=== PATIENT | male | born 1950 | race Caucasian/White ===

== ENCOUNTER 2017-11-08 00:04 | Inpatient (IN) ==
[2017-11-08] MEDS ORDERED: PHENYLEPHRINE DRIP 40 MG/250 ML PREMIX IV ONE (00:14)
[2017-11-08] MEDS ORDERED: SODIUM CHLORIDE 0.9% 500 ML IV STA (00:19)
[2017-11-08] MEDS ORDERED: CLINDAMYCIN INJ 600 MG in PREMIX 1 EACH IV STA (00:19)
[2017-11-08] MEDS ORDERED: methylPREDNISolone SOD SUC 125 MG/2 ML VIAL IV STA (00:19)
[2017-11-08] MEDS ORDERED: PHENYLEPHRINE DRIP 40 MG/250 ML PREMIX IV PRN (00:23)
[2017-11-08] MEDS ORDERED: ALBUTEROL 2.5 MG/3 ML NEB RESP TX SCH (00:30)
[2017-11-08] MEDS ORDERED: VECURONIUM 10 MG VIAL IV ONE (00:43)
[2017-11-08] MEDS ORDERED: FUROSEMIDE 40 MG/4 ML VIAL IV STA ×2 (00:46→02:11)
[2017-11-08] MEDS ORDERED: VECURONIUM 10 MG VIAL IV STA (00:46)
[2017-11-08] MEDS ORDERED: FUROSEMIDE 40 MG/4 ML VIAL ONE (00:46)
[2017-11-08 00:56] LABS: Basophils % 0.4 % (0.0-0.8); Eosinophils # 0.3 10*3/uL (0.0-0.87); Eosinophils % 3.3 % (0.00-10.9); Hematocrit 31.4 VOL% (42.0-52.0); Hemoglobin 9.8 GM/DL (14.0-18.0); Immature Granulocytes % 4.4 %; Immature Granulocytes Absolute 0.36 #; Lymphocytes # 0.8 10*3/uL (1.4-4.0); Lymphocytes % 9.8 % (21.2-54.2); Mean Corpuscular HGB Conc 31.2 GM/DL (32-36); Mean Corpuscular Hemoglobin 27 PG (27-34); Mean Corpuscular Volume 87.5 FL (87-102); Mean Platelet Volume 9.1 FL (9.6-12.0); Monocytes # 0.5 10*3/uL (0.11-0.8); Monocytes % 6.5 % (1.7-12.7); Neutrophils # 6.2 10*3/uL (1.4-7.4); Neutrophils % 75.6 % (38.7-73.9); Platelet Count 374 T/CUMM (130-400); Red Blood Count 3.59 MC/CUMM (3.8-5.5); Red Cell Distribution Width 15.8 % (9.3-17.3); White Blood Count 8.2 T/CUMM (4-12)
[2017-11-08 01:09] LABS: INR 1.1; PT Patient Result 11.7 SECS
[2017-11-08 01:10] LABS: Alanine Aminotransferase 51 U/L (16-61); Albumin 2.2 G/DL (3.4-5.0); Alkaline Phosphatase 450 U/L (45-117); Aspartate Amino Transferase 71 U/L (0-37); Blood Urea Nitrogen 18 MG/DL (7-18); Calcium 8.8 MG/DL (8.5-10.1); Glucose 116 MG/DL (74-106); Osmolality,Calculated 281.4 MOS/KG (273-304); Potassium 4.3 MMOL/L (3.5-5.1); Sodium 140 MMOL/L (136-145); Total Protein 7.1 G/DL (6.4-8.3); Troponin I < 0.015 NG/ML (0.00-0.045)
[2017-11-08 01:14] LABS: ABG Base Excess 3.7 MMOL/L (-2.5-2.5); ABG HCO3 27.7 MMOL/L (20-26); ABG Oxygen Saturation 99.1 % (95-100); ABG PCO2 55.8 MM HG (35-48); ABG PH 7.346 (7.35-7.45); ABG TCO2 27.9 MMOL/L (23-27); Allen Test Positive; Pt O2 Delivery Device Ventilator
[2017-11-08 01:29] LABS: Lactic Acid 4.2 MMOL/L (0.4-2.0)
[2017-11-08 01:47] LABS: Apearance,Urine Slightly Hazy (Clear); Bacteria,Urine Occasional /HPF (Few); Bilirubin,Urine Negative (Negative); Blood, Urine Negative (Negative); Glucose,Urine (UA) Negative (Negative); Hyaline Casts,Urine 1 /LPF (0-3); Ketones,Urine Negative (Negative); Nitrite,Urine Positive (Negative); Protein,Urine Negative; RBC,Urine 3 /HPF (0-4); Squamous Epithelial Cell,Urine Occasional /HPF (0-10); Urine Color Yellow (Yellow); Urine Specific Gravity 1.011 (1.001-1.035); WBC,Urine 45 /HPF (0-6)
[2017-11-08 01:58] LABS: Barbiturates Screen,Urine Negative (Negative); Benzodiazepines Screen,Urine Negative (Negative); Cannabinoid Screen,Urine Negative (Negative); Opiate Screen,Urine Positive (Negative); Phencyclidine Screen,Urine Negative (Negative)
[2017-11-08] MEDS ORDERED: VANCOMYCIN 1,000 MG VIAL ONE (02:26)
[2017-11-08] MEDS ORDERED: VANCOMYCIN INJ 1,000 MG in SODIUM CHLORIDE 0.9% 250 ML IV SCH (02:30)
[2017-11-08] MEDS: PIPERACILLIN/TAZOBACTAM 3,375 MG in SODIUM CHLORIDE 0.9% 100 ML IV SCH ×3 (02:40→20:44)
[2017-11-08] MEDS ORDERED: VANCOMYCIN INJ 1,000 MG in SODIUM CHLORIDE 0.9% 250 ML IV STA (02:43)
[2017-11-08] MEDS ORDERED: ALBUTEROL 2.5 MG/3 ML NEB RESP TX PRN (03:11)
[2017-11-08] MEDS ORDERED: LACTULOSE 20 GM/30 ML UDCUP PO PRN (03:11)
[2017-11-08] MEDS ORDERED: ONDANSETRON 4 MG/2 ML VIAL IV PRN (03:11)
[2017-11-08] MEDS ORDERED: GLUCAGON 1 MG VIAL IM PRN (03:26)
[2017-11-08] MEDS ORDERED: DEXTROSE 50% 25 GM/50 ML VIAL IV PRN (03:26)
[2017-11-08 03:52] LABS: ABG Base Excess 5.5 MMOL/L (-2.5-2.5); ABG HCO3 29.5 MMOL/L (20-26); ABG Oxygen Saturation 99.3 % (95-100); ABG PCO2 47.6 MM HG (35-48); ABG TCO2 28.1 MMOL/L (23-27); Allen Test Positive; Pt O2 Delivery Device Ventilator
[2017-11-08] MEDS: SODIUM CHLORIDE 0.9% 1,000 ML IV SCH ×2 (04:20→14:43)
[2017-11-08] MEDS: PROPOFOL 1,000 MG/100 ML BOTTLE IV SCH ×6 (04:20→23:50)
[2017-11-08 04:30] LABS: INR 1.1; PT Patient Result 11.8 SECS
[2017-11-08] MEDS ORDERED: hydrALAZINE 20 MG/1 ML VIAL IV PRN (04:30)
[2017-11-08 04:34] LABS: Basophils % 0.3 % (0.0-0.8); Eosinophils # 0.1 10*3/uL (0.0-0.87); Eosinophils % 0.7 % (0.00-10.9); Hematocrit 31.7 VOL% (42.0-52.0); Hemoglobin 9.7 GM/DL (14.0-18.0); Immature Granulocytes % 1.3 %; Immature Granulocytes Absolute 0.13 #; Lymphocytes # 0.6 10*3/uL (1.4-4.0); Lymphocytes % 6.2 % (21.2-54.2); Mean Corpuscular HGB Conc 30.6 GM/DL (32-36); Mean Corpuscular Hemoglobin 27 PG (27-34); Mean Corpuscular Volume 88.3 FL (87-102); Mean Platelet Volume 8.9 FL (9.6-12.0); Monocytes # 0.2 10*3/uL (0.11-0.8); Monocytes % 1.7 % (1.7-12.7); Neutrophils # 8.7 10*3/uL (1.4-7.4); Neutrophils % 89.8 % (38.7-73.9); Platelet Count 378 T/CUMM (130-400); Red Blood Count 3.59 MC/CUMM (3.8-5.5); Red Cell Distribution Width 15.7 % (9.3-17.3); White Blood Count 9.6 T/CUMM (4-12)
[2017-11-08] MEDS: amLODIPine 5 MG TABLET PO SCH (04:50)
[2017-11-08] MEDS: hydrALAZINE 20 MG/1 ML VIAL IV PRN (04:50)
[2017-11-08 04:54] LABS: Albumin 2.4 G/DL (3.4-5.0); Bilirubin,Total 0.5 MG/DL (0.2-1.0); Osmolality,Calculated 282.5 MOS/KG (273-304); Potassium 3.5 MMOL/L (3.5-5.1); Total Protein 7.6 G/DL (6.4-8.3)
[2017-11-08] MEDS ORDERED: METOPROLOL SUCCINATE XL 50 MG TABLET PO SCH (05:00)
[2017-11-08] MEDS ORDERED: PIPERACILLIN/TAZOBACTAM 3,375 MG in SODIUM CHLORIDE 0.9% 100 ML IV SCH (05:30)
[2017-11-08] MEDS ORDERED: VANCOMYCIN INJ 1,250 MG in SODIUM CHLORIDE 0.9% 250 ML IV SCH (05:30)
[2017-11-08] MEDS ORDERED: niCARdipine INJ 25 MG in SODIUM CHLORIDE 0.9% 240 ML IV PRN (05:38)
[2017-11-08] MEDS ORDERED: niCARdipine 25 MG/10 ML VIAL IV ONE (05:44)
[2017-11-08] MEDS ORDERED: VANCOMYCIN INJ 1,000 MG in SODIUM CHLORIDE 0.9% 250 ML IV ONE (06:00)
[2017-11-08] MEDS: INSULIN LISPRO 100 UNIT/ML SUBCUT SCH ×4 (06:04→23:54)
[2017-11-08] MEDS: ALBUTEROL/IPRATROPIUM 3 ML NEB RESP TX SCH ×3 (07:00→19:04)
[2017-11-08] MEDS ORDERED: RIVAROXABAN 20 MG TABLET PO SCH (08:00)
[2017-11-08] MEDS: METOPROLOL TARTRATE 25 MG TABLET PER TUBE SCH ×2 (08:51→20:44)
[2017-11-08] MEDS: PANTOPRAZOLE 40 MG VIAL IV SCH (08:52)
[2017-11-08] MEDS: ENOXAPARIN 40 MG/0.4 ML SYRINGE SUBCUT SCH (08:52)
[2017-11-08] MEDS ORDERED: ENOXAPARIN 40 MG/0.4 ML SYRINGE SUBCUT SCH (09:00)
[2017-11-08] MEDS: methylPREDNISolone SOD SUC 40 MG/1 ML VIAL IV SCH ×2 (10:27→20:44)
[2017-11-08] MEDS: FUROSEMIDE 40 MG/4 ML VIAL IV SCH (10:30)
[2017-11-08] MEDS: VANCOMYCIN INJ 2,000 MG in SODIUM CHLORIDE 0.9% 500 ML IV SCH (17:55)
[2017-11-08] MEDS: FINASTERIDE 5 MG TABLET PO SCH (20:44)
[2017-11-09] MEDS: ALBUTEROL/IPRATROPIUM 3 ML NEB RESP TX SCH ×4 (00:06→19:21)
[2017-11-09] MEDS: methylPREDNISolone SOD SUC 40 MG/1 ML VIAL IV SCH ×3 (00:08→17:54)
[2017-11-09] MEDS: PIPERACILLIN/TAZOBACTAM 3,375 MG in SODIUM CHLORIDE 0.9% 100 ML IV SCH ×3 (01:49→18:44)
[2017-11-09] MEDS: PROPOFOL 1,000 MG/100 ML BOTTLE IV SCH ×10 (01:55→21:57)
[2017-11-09] MEDS: SODIUM CHLORIDE 0.9% 1,000 ML IV SCH ×2 (03:46→15:45)
[2017-11-09 04:21] LABS: Basophils % 0.1 % (0.0-0.8); Hemoglobin 8.7 GM/DL (14.0-18.0); Immature Granulocytes % 1.2 %; Immature Granulocytes Absolute 0.17 #; Lymphocytes % 6.7 % (21.2-54.2); Mean Corpuscular HGB Conc 31.1 GM/DL (32-36); Mean Corpuscular Hemoglobin 27 PG (27-34); Mean Corpuscular Volume 87.5 FL (87-102); Mean Platelet Volume 9.3 FL (9.6-12.0); Monocytes # 0.2 10*3/uL (0.11-0.8); Monocytes % 1.5 % (1.7-12.7); Neutrophils # 12.9 10*3/uL (1.4-7.4); Neutrophils % 90.5 % (38.7-73.9); Platelet Count 383 T/CUMM (130-400); Red Cell Distribution Width 15.8 % (9.3-17.3); White Blood Count 14.3 T/CUMM (4-12)
[2017-11-09 04:23] LABS: ABG Base Excess 3.5 MMOL/L (-2.5-2.5); ABG HCO3 27.6 MMOL/L (20-26); ABG Oxygen Saturation 98.1 % (95-100); ABG PCO2 39.2 MM HG (35-48); ABG PH 7.455 (7.35-7.45); ABG TCO2 25.4 MMOL/L (23-27); Allen Test Positive; Pt O2 Delivery Device Ventilator
[2017-11-09 04:57] LABS: Osmolality,Calculated 292.1 MOS/KG (273-304); Potassium 3.3 MMOL/L (3.5-5.1); Prealbumin 13.1 MG/DL (20-40)
[2017-11-09] MEDS: INSULIN LISPRO 100 UNIT/ML SUBCUT SCH ×3 (05:51→17:58)
[2017-11-09] MEDS: VANCOMYCIN INJ 2,000 MG in SODIUM CHLORIDE 0.9% 500 ML IV SCH ×2 (05:53→18:35)
[2017-11-09 07:24] LABS: ABG Base Excess 4.2 MMOL/L (-2.5-2.5); ABG HCO3 28.1 MMOL/L (20-26); ABG PCO2 40.6 MM HG (35-48); ABG PH 7.453 (7.35-7.45); ABG PO2 75.7 MM HG (80-95); Allen Test Positive; Pt O2 Delivery Device Ventilator
[2017-11-09] MEDS: FUROSEMIDE 40 MG/4 ML VIAL IV SCH (09:30)
[2017-11-09] MEDS: amLODIPine 5 MG TABLET PO SCH (09:33)
[2017-11-09] MEDS: METOPROLOL TARTRATE 25 MG TABLET PER TUBE SCH ×2 (09:33→20:36)
[2017-11-09] MEDS: ENOXAPARIN 40 MG/0.4 ML SYRINGE SUBCUT SCH (09:33)
[2017-11-09] MEDS: PANTOPRAZOLE 40 MG VIAL IV SCH (09:33)
[2017-11-09] MEDS: MORPHINE 4 MG/1 ML VIAL IV PRN (15:09)
[2017-11-09] MEDS: MIDAZOLAM 100 MG in SODIUM CHLORIDE 0.9% 80 ML IV SCH (16:59)
[2017-11-09] MEDS: FINASTERIDE 5 MG TABLET PO SCH (20:36)
[2017-11-09] MEDS: hydrALAZINE 20 MG/1 ML VIAL IV PRN (22:13)
[2017-11-10] MEDS: INSULIN LISPRO 100 UNIT/ML SUBCUT SCH ×5 (00:11→23:38)
[2017-11-10] MEDS: ALBUTEROL/IPRATROPIUM 3 ML NEB RESP TX SCH ×4 (00:52→18:58)
[2017-11-10] MEDS: methylPREDNISolone SOD SUC 40 MG/1 ML VIAL IV SCH ×3 (01:18→17:08)
[2017-11-10] MEDS: PROPOFOL 1,000 MG/100 ML BOTTLE IV SCH ×6 (01:28→21:19)
[2017-11-10] MEDS: SODIUM CHLORIDE 0.9% 1,000 ML IV SCH ×3 (01:43→21:50)
[2017-11-10] MEDS: PIPERACILLIN/TAZOBACTAM 3,375 MG in SODIUM CHLORIDE 0.9% 100 ML IV SCH ×3 (02:24→21:14)
[2017-11-10 03:05] LABS: Allen Test Positive; Pt O2 Delivery Device Ventilator
[2017-11-10 03:06] LABS: ABG Base Excess 4.3 MMOL/L (-2.5-2.5); ABG Oxygen Saturation 96.9 % (95-100); ABG PCO2 38.3 MM HG (35-48); ABG PH 7.482 (7.35-7.45); ABG PO2 95.2 MM HG (80-95); ABG TCO2 29.2 MMOL/L (23-27)
[2017-11-10] MEDS: hydrALAZINE 20 MG/1 ML VIAL IV PRN ×2 (04:44→13:10)
[2017-11-10] MEDS: METOPROLOL TARTRATE 25 MG TABLET PER TUBE SCH ×2 (08:45→21:14)
[2017-11-10] MEDS: MULTIVITAMIN LIQUID (CENTRUM) 60 ML BOTTLE PER TUBE SCH (08:45)
[2017-11-10] MEDS: ENOXAPARIN 40 MG/0.4 ML SYRINGE SUBCUT SCH (08:45)
[2017-11-10] MEDS: FUROSEMIDE 40 MG/4 ML VIAL IV SCH (08:45)
[2017-11-10] MEDS: MORPHINE 4 MG/1 ML VIAL IV PRN ×2 (08:50→13:05)
[2017-11-10] MEDS: amLODIPine 5 MG TABLET PO SCH (08:50)
[2017-11-10] MEDS: PANTOPRAZOLE 40 MG VIAL IV SCH (08:55)
[2017-11-10] MEDS: MIDAZOLAM 100 MG in SODIUM CHLORIDE 0.9% 80 ML IV SCH ×2 (13:15→16:00)
[2017-11-10] MEDS: FINASTERIDE 5 MG TABLET PO SCH (21:14)
[2017-11-11] MEDS: hydrALAZINE 20 MG/1 ML VIAL IV PRN ×3 (00:35→23:45)
[2017-11-11] MEDS: methylPREDNISolone SOD SUC 40 MG/1 ML VIAL IV SCH ×3 (00:36→17:45)
[2017-11-11] MEDS: MORPHINE 4 MG/1 ML VIAL IV PRN ×4 (00:36→18:37)
[2017-11-11] MEDS: ALBUTEROL/IPRATROPIUM 3 ML NEB RESP TX SCH ×4 (00:42→19:50)
[2017-11-11] MEDS: PROPOFOL 1,000 MG/100 ML BOTTLE IV SCH ×7 (02:00→22:15)
[2017-11-11 03:31] LABS: ABG Base Excess 3.4 MMOL/L (-2.5-2.5); ABG HCO3 27.4 MMOL/L (20-26); ABG Oxygen Saturation 96.5 % (95-100); ABG PCO2 43.2 MM HG (35-48); ABG PH 7.422 (7.35-7.45); ABG PO2 86.2 MM HG (80-95); ABG TCO2 25.9 MMOL/L (23-27)
[2017-11-11 04:14] LABS: Basophils % 0.1 % (0.0-0.8); Hematocrit 29.6 VOL% (42.0-52.0); Hemoglobin 8.8 GM/DL (14.0-18.0); Immature Granulocytes % 4.1 %; Immature Granulocytes Absolute 0.59 #; Lymphocytes % 7.2 % (21.2-54.2); Mean Corpuscular HGB Conc 29.7 GM/DL (32-36); Mean Corpuscular Hemoglobin 27 PG (27-34); Mean Platelet Volume 9.4 FL (9.6-12.0); Monocytes # 0.5 10*3/uL (0.11-0.8); Monocytes % 3.6 % (1.7-12.7); NRBC # 0.03 10*3/uL; Neutrophils # 12.2 10*3/uL (1.4-7.4); Platelet Count 382 T/CUMM (130-400); Red Blood Count 3.29 MC/CUMM (3.8-5.5); Red Cell Distribution Width 16.8 % (9.3-17.3); White Blood Count 14.3 T/CUMM (4-12)
[2017-11-11 04:56] LABS: Calcium 8.4 MG/DL (8.5-10.1); Potassium 4.1 MMOL/L (3.5-5.1)
[2017-11-11] MEDS: PIPERACILLIN/TAZOBACTAM 3,375 MG in SODIUM CHLORIDE 0.9% 100 ML IV SCH ×4 (04:56→21:44)
[2017-11-11] MEDS: INSULIN LISPRO 100 UNIT/ML SUBCUT SCH ×3 (06:27→18:21)
[2017-11-11] MEDS: SODIUM CHLORIDE 0.9% 1,000 ML IV SCH ×2 (07:51→17:54)
[2017-11-11 09:25] LABS: Lymphocytes 10 % (20-55); Platelet Estimate Normal; Polychromasia Slight; Segmented Neutrophils 87 % (50-85); Total Cells Counted 100
[2017-11-11] MEDS: FUROSEMIDE 40 MG/4 ML VIAL IV SCH (09:32)
[2017-11-11] MEDS: ENOXAPARIN 40 MG/0.4 ML SYRINGE SUBCUT SCH (09:32)
[2017-11-11] MEDS: PANTOPRAZOLE 40 MG VIAL IV SCH (09:32)
[2017-11-11] MEDS: MULTIVITAMIN LIQUID (CENTRUM) 60 ML BOTTLE PER TUBE SCH (09:33)
[2017-11-11] MEDS: amLODIPine 5 MG TABLET PO SCH (09:33)
[2017-11-11] MEDS: METOPROLOL TARTRATE 25 MG TABLET PER TUBE SCH ×2 (09:33→21:37)
[2017-11-11] MEDS ORDERED: VANCOMYCIN INJ 2,000 MG in SODIUM CHLORIDE 0.9% 500 ML IV SCH (10:00)
[2017-11-11] MEDS: MIDAZOLAM 100 MG in SODIUM CHLORIDE 0.9% 80 ML IV SCH ×2 (14:50→16:00)
[2017-11-11] MEDS: FINASTERIDE 5 MG TABLET PO SCH (21:37)
[2017-11-12] MEDS: INSULIN LISPRO 100 UNIT/ML SUBCUT SCH ×3 (00:08→12:14)
[2017-11-12] MEDS: methylPREDNISolone SOD SUC 40 MG/1 ML VIAL IV SCH ×2 (00:08→08:45)
[2017-11-12] MEDS: ALBUTEROL/IPRATROPIUM 3 ML NEB RESP TX SCH ×3 (00:54→12:16)
[2017-11-12] MEDS: PROPOFOL 1,000 MG/100 ML BOTTLE IV SCH ×3 (01:28→08:14)
[2017-11-12 03:46] LABS: ABG Base Excess 2.1 MMOL/L (-2.5-2.5); ABG HCO3 26.3 MMOL/L (20-26); ABG Oxygen Saturation 97.6 % (95-100); ABG PCO2 39.2 MM HG (35-48); ABG PH 7.435 (7.35-7.45); ABG PO2 93.3 MM HG (80-95); ABG TCO2 24.4 MMOL/L (23-27)
[2017-11-12] MEDS: SODIUM CHLORIDE 0.9% 1,000 ML IV SCH ×2 (03:54→14:07)
[2017-11-12 04:26] LABS: Basophils % 0.2 % (0.0-0.8); Hematocrit 28.8 VOL% (42.0-52.0); Lymphocytes # 0.9 10*3/uL (1.4-4.0); Lymphocytes % 7.6 % (21.2-54.2); Mean Corpuscular HGB Conc 31.3 GM/DL (32-36); Mean Corpuscular Hemoglobin 29 PG (27-34); Mean Corpuscular Volume 91.4 FL (87-102); Mean Platelet Volume 9.6 FL (9.6-12.0); Monocytes # 0.5 10*3/uL (0.11-0.8); Monocytes % 4.1 % (1.7-12.7); NRBC # 0.03 10*3/uL; Neutrophils # 9.9 10*3/uL (1.4-7.4); Neutrophils % 83.1 % (38.7-73.9); Platelet Count 362 T/CUMM (130-400); Red Blood Count 3.15 MC/CUMM (3.8-5.5); Red Cell Distribution Width 17.1 % (9.3-17.3); White Blood Count 11.9 T/CUMM (4-12)
[2017-11-12 04:44] LABS: Calcium 7.4 MG/DL (8.5-10.1); Osmolality,Calculated 286.5 MOS/KG (273-304)
[2017-11-12 05:07] LABS: Band Neutrophils 3 % (0-10); Hypochromasia 1+; Lymphocytes 6 % (20-55); Platelet Estimate Adequate; Segmented Neutrophils 88 % (50-85); Total Cells Counted 100
[2017-11-12] MEDS: MORPHINE 4 MG/1 ML VIAL IV PRN ×2 (05:42→12:16)
[2017-11-12] MEDS: PIPERACILLIN/TAZOBACTAM 3,375 MG in SODIUM CHLORIDE 0.9% 100 ML IV SCH (07:13)
[2017-11-12] MEDS: ENOXAPARIN 40 MG/0.4 ML SYRINGE SUBCUT SCH (08:43)
[2017-11-12] MEDS: amLODIPine 5 MG TABLET PO SCH (08:43)
[2017-11-12] MEDS: METOPROLOL TARTRATE 25 MG TABLET PER TUBE SCH (08:43)
[2017-11-12] MEDS: PANTOPRAZOLE 40 MG VIAL IV SCH (08:44)
[2017-11-12] MEDS: MULTIVITAMIN LIQUID (CENTRUM) 60 ML BOTTLE PER TUBE SCH (08:45)
[2017-11-12] MEDS: FUROSEMIDE 40 MG/4 ML VIAL IV SCH (08:45)
[2017-11-12 09:36] LABS: ABG Base Excess 1.5 MMOL/L (-2.5-2.5); ABG HCO3 25.7 MMOL/L (20-26); ABG Oxygen Saturation 94.1 % (95-100); ABG PCO2 44.5 MM HG (35-48); ABG PH 7.387 (7.35-7.45); ABG PO2 74.6 MM HG (80-95); ABG TCO2 24.5 MMOL/L (23-27); Allen Test Positive
[2017-11-12] MEDS ORDERED: cloNIDine 0.3 MG/24 HR PATCH TRANSDERM SCH (10:00)
[2017-11-12 13:57] VITALS: BP 111/85
== END 2017-11-12 15:28 | DRG 208 ==
LOC: N.ED 00:04 → SUATTDRO 03:11 → N.ICU 03:11
PROVIDERS: ADMIT Internal Medicine Geriatric Medicine; ATTEND Internal Medicine

== ENCOUNTER 2018-02-16 18:40 | Inpatient (IN) ==
[2018-02-16] MEDS ORDERED: SODIUM CHLORIDE 0.9% 500 ML IV STA (19:05)
[2018-02-16] MEDS ORDERED: PHENYLEPHRINE DRIP 40 MG/250 ML PREMIX IV PRN ×2 (19:05→23:39)
[2018-02-16] MEDS ORDERED: CEFEPIME 2,000 MG in SODIUM CHLORIDE 0.9% 100 ML IV STA (19:05)
[2018-02-16] MEDS ORDERED: CEFEPIME 2,000 MG VIAL ONE (19:06)
[2018-02-16] MEDS ORDERED: PHENYLEPHRINE DRIP 40 MG/250 ML PREMIX IV ONE (19:06)
[2018-02-16 19:07] LABS: Basophils % 0.3 % (0.0-0.8); Eosinophils # 0.2 10*3/uL (0.0-0.87); Eosinophils % 1.4 % (0.00-10.9); Hematocrit 37.6 VOL% (42.0-52.0); Hemoglobin 11.5 GM/DL (14.0-18.0); Immature Granulocytes Absolute 0.13 #; Lymphocytes # 0.9 10*3/uL (1.4-4.0); Mean Corpuscular HGB Conc 30.6 GM/DL (32-36); Mean Corpuscular Hemoglobin 27 PG (27-34); Mean Corpuscular Volume 87.2 FL (87-102); Mean Platelet Volume 8.9 FL (9.6-12.0); Monocytes # 0.6 10*3/uL (0.11-0.8); Monocytes % 4.6 % (1.7-12.7); Neutrophils # 10.7 10*3/uL (1.4-7.4); Neutrophils % 85.7 % (38.7-73.9); Platelet Count 325 T/CUMM (130-400); Red Blood Count 4.31 MC/CUMM (3.8-5.5); Red Cell Distribution Width 15.2 % (9.3-17.3); White Blood Count 12.5 T/CUMM (4-12)
[2018-02-16 19:25] LABS: Lactic Acid 1.7 MMOL/L (0.4-2.0)
[2018-02-16 19:27] LABS: Alanine Aminotransferase 55 U/L (16-61); Albumin 2.9 G/DL (3.4-5.0); Alkaline Phosphatase 346 U/L (45-117); Aspartate Amino Transferase 72 U/L (0-37); Blood Urea Nitrogen 28 MG/DL (7-18); Calcium 8.7 MG/DL (8.5-10.1); Glucose 156 MG/DL (74-106); Osmolality,Calculated 268.8 MOS/KG (273-304); Potassium 4.5 MMOL/L (3.5-5.1); Sodium 130 MMOL/L (136-145); Total Protein 7.3 G/DL (6.4-8.3); Troponin I < 0.015 NG/ML (0.00-0.045)
[2018-02-16 19:48] LABS: ABG Base Excess -1.3 MMOL/L (-2.5-2.5); ABG HCO3 23.3 MMOL/L (20-26); ABG Oxygen Saturation 98.6 % (95-100); ABG PCO2 68.8 MM HG (35-48); ABG PH 7.227 (7.35-7.45); ABG TCO2 25.6 MMOL/L (23-27)
[2018-02-16] MEDS ORDERED: ALBUTEROL 2.5 MG/3 ML NEB RESP TX PRN (20:38)
[2018-02-16] MEDS ORDERED: ACETAMINOPHEN 325 MG TABLET PO PRN (20:38)
[2018-02-16] MEDS ORDERED: PHENYLEPHRINE DRIP 40 MG/250 ML PREMIX IV SCH (21:00)
[2018-02-16] MEDS: SODIUM CHLORIDE 0.9% 1,000 ML IV SCH (22:19)
[2018-02-16] MEDS: FAMOTIDINE 20 MG/2 ML VIAL IV SCH (23:00)
[2018-02-17] MEDS: ALBUTEROL/IPRATROPIUM 3 ML NEB RESP TX SCH ×4 (02:10→19:41)
[2018-02-17 03:35] LABS: Allen Test Positive; Pt O2 Delivery Device Ventilator
[2018-02-17 03:36] LABS: ABG Base Excess 1.7 MMOL/L (-2.5-2.5); ABG HCO3 25.8 MMOL/L (20-26); ABG Oxygen Saturation 95.5 % (95-100); ABG PCO2 50.7 MM HG (35-48); ABG PH 7.351 (7.35-7.45); ABG PO2 77.7 MM HG (80-95); ABG TCO2 25.3 MMOL/L (23-27)
[2018-02-17 03:55] LABS: Basophils # 0.1 10*3/uL (0.0-0.2); Basophils % 0.4 % (0.0-0.8); Eosinophils # 0.1 10*3/uL (0.0-0.87); Eosinophils % 0.6 % (0.00-10.9); Hematocrit 36.3 VOL% (42.0-52.0); Hemoglobin 10.8 GM/DL (14.0-18.0); Immature Granulocytes % 0.3 %; Immature Granulocytes Absolute 0.04 #; Lymphocytes # 1.3 10*3/uL (1.4-4.0); Mean Corpuscular HGB Conc 29.8 GM/DL (32-36); Mean Corpuscular Hemoglobin 26 PG (27-34); Mean Corpuscular Volume 87.1 FL (87-102); Mean Platelet Volume 9.2 FL (9.6-12.0); Monocytes # 1.3 10*3/uL (0.11-0.8); Monocytes % 10.4 % (1.7-12.7); Neutrophils # 9.8 10*3/uL (1.4-7.4); Neutrophils % 78.3 % (38.7-73.9); Platelet Count 315 T/CUMM (130-400); Red Blood Count 4.17 MC/CUMM (3.8-5.5); White Blood Count 12.5 T/CUMM (4-12)
[2018-02-17 04:12] LABS: Albumin 2.9 G/DL (3.4-5.0); Bilirubin,Total 0.4 MG/DL (0.2-1.0); Calcium 8.8 MG/DL (8.5-10.1)
[2018-02-17 04:13] LABS: Osmolality,Calculated 269.5 MOS/KG (273-304); Potassium 4.4 MMOL/L (3.5-5.1)
[2018-02-17] MEDS: SODIUM CHLORIDE 0.9% 1,000 ML IV SCH ×3 (05:36→22:46)
[2018-02-17] MEDS: PROPOFOL 1,000 MG/100 ML BOTTLE IV SCH ×7 (05:36→22:46)
[2018-02-17] MEDS ORDERED: LIDOCAINE 2% 20 ML VIAL RESP TX ONE (08:24)
[2018-02-17] MEDS ORDERED: LIDOCAINE 1% 20 ML VIAL MISC INJ ONE (08:24)
[2018-02-17] MEDS: ENOXAPARIN 40 MG/0.4 ML SYRINGE SUBCUT SCH (09:48)
[2018-02-17] MEDS: PIPERACILLIN/TAZOBACTAM 3,375 MG in SODIUM CHLORIDE 0.9% 100 ML IV SCH ×2 (09:48→17:11)
[2018-02-17] MEDS: DOXYCYCLINE HYCLATE 100 MG CAPSULE PO SCH ×2 (09:48→20:36)
[2018-02-17] MEDS: FAMOTIDINE 20 MG/2 ML VIAL IV SCH ×2 (09:49→20:35)
[2018-02-18] MEDS: ALBUTEROL/IPRATROPIUM 3 ML NEB RESP TX SCH ×5 (00:48→19:15)
[2018-02-18] MEDS: PIPERACILLIN/TAZOBACTAM 3,375 MG in SODIUM CHLORIDE 0.9% 100 ML IV SCH ×3 (01:15→16:05)
[2018-02-18] MEDS: PROPOFOL 1,000 MG/100 ML BOTTLE IV SCH ×12 (01:15→23:01)
[2018-02-18] MEDS: MORPHINE 4 MG/1 ML VIAL IV PRN ×3 (03:15→22:07)
[2018-02-18 03:43] LABS: ABG Base Excess 1.9 MMOL/L (-2.5-2.5); ABG HCO3 26.1 MMOL/L (20-26); ABG Oxygen Saturation 95.9 % (95-100); ABG PCO2 43.2 MM HG (35-48); ABG PH 7.404 (7.35-7.45); ABG PO2 78.5 MM HG (80-95); ABG TCO2 24.5 MMOL/L (23-27); Allen Test Positive; Pt O2 Delivery Device Ventilator
[2018-02-18 04:54] LABS: Calcium 8.5 MG/DL (8.5-10.1); Potassium 3.1 MMOL/L (3.5-5.1)
[2018-02-18] MEDS: DOXYCYCLINE HYCLATE 100 MG CAPSULE PO SCH ×2 (08:25→21:31)
[2018-02-18] MEDS: POTASSIUM CHLORIDE 20 MEQ/15 ML UDCUP PER TUBE SCH ×5 (08:25→23:58)
[2018-02-18] MEDS: ENOXAPARIN 40 MG/0.4 ML SYRINGE SUBCUT SCH (08:25)
[2018-02-18] MEDS: FAMOTIDINE 20 MG/2 ML VIAL IV SCH ×2 (08:25→21:31)
[2018-02-18] MEDS: SODIUM CHLORIDE 0.9% 1,000 ML IV SCH ×2 (10:11→17:47)
[2018-02-18] MEDS: VANCOMYCIN INJ 2,000 MG in SODIUM CHLORIDE 0.9% 500 ML IV SCH ×2 (10:20→21:59)
[2018-02-18] MEDS: methylPREDNISolone SOD SUC 40 MG/1 ML VIAL IV SCH ×2 (10:20→17:43)
[2018-02-18] MEDS ORDERED: DEXTROSE 50% 25 GM/50 ML SYRINGE IV PRN (11:11)
[2018-02-18] MEDS ORDERED: INFLUENZA VIRUS VACCINE 0.5 ML SYRINGE IM ONE (16:30)
[2018-02-18] MEDS ORDERED: amLODIPine 10 MG TABLET PO ONE (17:05)
[2018-02-18 20:02] LABS: Apearance,Urine CLEAR (Clear); Bilirubin,Urine Negative (Negative); Blood, Urine Negative (Negative); Glucose,Urine (UA) Negative (Negative); Ketones,Urine Negative (Negative); Nitrite,Urine Negative (Negative); Protein,Urine Negative; RBC,Urine <1 /HPF (0-4); Urine Color Yellow (Yellow); Urine Specific Gravity 1.013 (1.001-1.035); Urine Urobilinogen < 2.0 EU/DL (0.2-1.0); WBC,Urine 4 /HPF (0-6)
[2018-02-18] MEDS: METOPROLOL SUCCINATE XL 50 MG TABLET PO SCH (23:09)
[2018-02-19] MEDS: PIPERACILLIN/TAZOBACTAM 3,375 MG in SODIUM CHLORIDE 0.9% 100 ML IV SCH ×2 (00:25→08:43)
[2018-02-19] MEDS: methylPREDNISolone SOD SUC 40 MG/1 ML VIAL IV SCH ×3 (00:30→18:10)
[2018-02-19] MEDS: PROPOFOL 1,000 MG/100 ML BOTTLE IV SCH ×16 (00:37→23:55)
[2018-02-19] MEDS ORDERED: cloNIDine 0.1 MG TABLET PO PRN (01:44)
[2018-02-19] MEDS: SODIUM CHLORIDE 0.9% 1,000 ML IV SCH ×4 (02:06→18:25)
[2018-02-19] MEDS: ALBUTEROL/IPRATROPIUM 3 ML NEB RESP TX SCH ×4 (02:09→20:41)
[2018-02-19 03:21] LABS: Basophils % 0.1 % (0.0-0.8); Hemoglobin 11.2 GM/DL (14.0-18.0); Immature Granulocytes Absolute 0.07 #; Lymphocytes # 1.3 10*3/uL (1.4-4.0); Lymphocytes % 17.2 % (21.2-54.2); Mean Corpuscular HGB Conc 30.3 GM/DL (32-36); Mean Corpuscular Hemoglobin 26 PG (27-34); Mean Corpuscular Volume 85.6 FL (87-102); Mean Platelet Volume 9.4 FL (9.6-12.0); Monocytes # 0.4 10*3/uL (0.11-0.8); Monocytes % 5.7 % (1.7-12.7); Neutrophils # 5.6 10*3/uL (1.4-7.4); Platelet Count 257 T/CUMM (130-400); Red Blood Count 4.32 MC/CUMM (3.8-5.5); White Blood Count 7.3 T/CUMM (4-12)
[2018-02-19 03:41] LABS: Calcium 9.1 MG/DL (8.5-10.1); Osmolality,Calculated 277.8 MOS/KG (273-304); Potassium 4.4 MMOL/L (3.5-5.1)
[2018-02-19 04:11] LABS: Prealbumin 18.4 MG/DL (20-40)
[2018-02-19 04:47] LABS: ABG Base Excess -1.5 MMOL/L (-2.5-2.5); ABG HCO3 23.9 MMOL/L (20-26); ABG Oxygen Saturation 96.7 % (95-100); ABG PCO2 42.8 MM HG (35-48); ABG PH 7.364 (7.35-7.45); ABG PO2 90.3 MM HG (80-95); ABG TCO2 25.2 MMOL/L (23-27)
[2018-02-19] MEDS: VENLAFAXINE 75 MG TABLET PER TUBE SCH (08:43)
[2018-02-19] MEDS: FAMOTIDINE 20 MG/2 ML VIAL IV SCH ×2 (08:43→20:27)
[2018-02-19] MEDS: DOXYCYCLINE HYCLATE 100 MG CAPSULE PO SCH ×2 (08:43→20:27)
[2018-02-19] MEDS: ENOXAPARIN 40 MG/0.4 ML SYRINGE SUBCUT SCH (08:43)
[2018-02-19] MEDS: METOPROLOL SUCCINATE XL 50 MG TABLET PO SCH (08:43)
[2018-02-19] MEDS: amLODIPine 10 MG TABLET PO SCH (08:43)
[2018-02-19] MEDS: VANCOMYCIN INJ 2,000 MG in SODIUM CHLORIDE 0.9% 500 ML IV SCH ×2 (10:20→20:43)
[2018-02-19] MEDS: LISINOPRIL 10 MG TABLET PO SCH (12:02)
[2018-02-19] MEDS: MEROPENEM 1,000 MG in SODIUM CHLORIDE 0.9% 100 ML IV SCH ×2 (16:39→23:38)
[2018-02-19] MEDS: METOPROLOL TARTRATE 50 MG TABLET PO SCH (20:28)
[2018-02-19] MEDS: MORPHINE 4 MG/1 ML VIAL IV PRN (22:02)
[2018-02-20] MEDS: PROPOFOL 1,000 MG/100 ML BOTTLE IV SCH ×5 (01:22→09:20)
[2018-02-20] MEDS: methylPREDNISolone SOD SUC 40 MG/1 ML VIAL IV SCH ×3 (01:49→17:30)
[2018-02-20 03:40] LABS: Basophils % 0.1 % (0.0-0.8); Hematocrit 31.2 VOL% (42.0-52.0); Hemoglobin 9.6 GM/DL (14.0-18.0); Immature Granulocytes % 0.8 %; Immature Granulocytes Absolute 0.08 #; Lymphocytes # 0.7 10*3/uL (1.4-4.0); Lymphocytes % 7.3 % (21.2-54.2); Mean Corpuscular HGB Conc 30.8 GM/DL (32-36); Mean Corpuscular Hemoglobin 26 PG (27-34); Mean Platelet Volume 9.5 FL (9.6-12.0); Monocytes # 0.4 10*3/uL (0.11-0.8); Monocytes % 4.2 % (1.7-12.7); Neutrophils # 8.9 10*3/uL (1.4-7.4); Neutrophils % 87.6 % (38.7-73.9); Platelet Count 259 T/CUMM (130-400); Red Blood Count 3.67 MC/CUMM (3.8-5.5); Red Cell Distribution Width 15.4 % (9.3-17.3); White Blood Count 10.2 T/CUMM (4-12)
[2018-02-20 04:07] LABS: Calcium 8.2 MG/DL (8.5-10.1); Osmolality,Calculated 281.7 MOS/KG (273-304); Potassium 3.9 MMOL/L (3.5-5.1)
[2018-02-20] MEDS: ALBUTEROL/IPRATROPIUM 3 ML NEB RESP TX SCH ×4 (04:30→20:27)
[2018-02-20] MEDS ORDERED: POTASSIUM CHLORIDE 20 MEQ/15 ML UDCUP PER TUBE PRN (05:10)
[2018-02-20 05:25] LABS: ABG HCO3 22.7 MMOL/L (20-26); ABG Oxygen Saturation 97.4 % (95-100); ABG PCO2 40.7 MM HG (35-48); ABG PH 7.365 (7.35-7.45); ABG PO2 93.7 MM HG (80-95)
[2018-02-20] MEDS ORDERED: hydrALAZINE 20 MG/1 ML VIAL IV ONE (06:30)
[2018-02-20] MEDS: MEROPENEM 1,000 MG in SODIUM CHLORIDE 0.9% 100 ML IV SCH ×2 (07:39→15:45)
[2018-02-20] MEDS: SODIUM CHLORIDE 0.9% 1,000 ML IV SCH (07:39)
[2018-02-20] MEDS ORDERED: FUROSEMIDE 40 MG/4 ML VIAL IV ONE (08:59)
[2018-02-20] MEDS: ENOXAPARIN 40 MG/0.4 ML SYRINGE SUBCUT SCH (09:00)
[2018-02-20] MEDS: amLODIPine 10 MG TABLET PO SCH (09:00)
[2018-02-20] MEDS: DOXYCYCLINE HYCLATE 100 MG CAPSULE PO SCH ×2 (09:01→20:01)
[2018-02-20] MEDS: FAMOTIDINE 20 MG/2 ML VIAL IV SCH ×2 (09:01→20:03)
[2018-02-20] MEDS: LISINOPRIL 10 MG TABLET PO SCH (09:01)
[2018-02-20] MEDS: METOPROLOL TARTRATE 50 MG TABLET PO SCH ×2 (09:01→20:01)
[2018-02-20] MEDS: VENLAFAXINE 75 MG TABLET PER TUBE SCH (09:01)
[2018-02-20] MEDS: VANCOMYCIN INJ 2,000 MG in SODIUM CHLORIDE 0.9% 500 ML IV SCH (10:26)
[2018-02-20] MEDS: MORPHINE 4 MG/1 ML VIAL IV PRN ×2 (12:24→20:01)
[2018-02-20] MEDS ORDERED: HALOPERIDOL 5 MG/ML AMP IV ONE (12:37)
[2018-02-20] MEDS: HALOPERIDOL 5 MG/ML AMP IM PRN ×2 (16:05→21:47)
[2018-02-21] MEDS: methylPREDNISolone SOD SUC 40 MG/1 ML VIAL IV SCH ×3 (00:35→17:36)
[2018-02-21] MEDS: MEROPENEM 1,000 MG in SODIUM CHLORIDE 0.9% 100 ML IV SCH ×3 (00:35→16:00)
[2018-02-21] MEDS: MORPHINE 4 MG/1 ML VIAL IV PRN ×3 (00:38→16:00)
[2018-02-21] MEDS: ALBUTEROL/IPRATROPIUM 3 ML NEB RESP TX SCH ×4 (00:45→19:48)
[2018-02-21 03:38] LABS: Basophils % 0.2 % (0.0-0.8); Hematocrit 33.4 VOL% (42.0-52.0); Hemoglobin 10.4 GM/DL (14.0-18.0); Immature Granulocytes % 1.2 %; Immature Granulocytes Absolute 0.18 #; Lymphocytes # 0.9 10*3/uL (1.4-4.0); Lymphocytes % 5.8 % (21.2-54.2); Mean Corpuscular HGB Conc 31.1 GM/DL (32-36); Mean Corpuscular Hemoglobin 26 PG (27-34); Mean Corpuscular Volume 84.3 FL (87-102); Mean Platelet Volume 9.3 FL (9.6-12.0); Monocytes % 6.4 % (1.7-12.7); NRBC # 0.02 10*3/uL; Neutrophils # 13.3 10*3/uL (1.4-7.4); Neutrophils % 86.4 % (38.7-73.9); Platelet Count 342 T/CUMM (130-400); Red Blood Count 3.96 MC/CUMM (3.8-5.5); Red Cell Distribution Width 15.7 % (9.3-17.3); White Blood Count 15.4 T/CUMM (4-12)
[2018-02-21 03:56] LABS: Calcium 9.1 MG/DL (8.5-10.1); Osmolality,Calculated 287.3 MOS/KG (273-304); Potassium 3.7 MMOL/L (3.5-5.1)
[2018-02-21 04:23] LABS: ABG Base Excess 1.3 MMOL/L (-2.5-2.5); ABG HCO3 25.5 MMOL/L (20-26); ABG Oxygen Saturation 98.2 % (95-100); ABG PCO2 42.2 MM HG (35-48); ABG PH 7.401 (7.35-7.45); ABG TCO2 23.6 MMOL/L (23-27); Pt O2 Delivery Device CPAP
[2018-02-21] MEDS: FAMOTIDINE 20 MG/2 ML VIAL IV SCH ×2 (09:32→20:54)
[2018-02-21] MEDS: ENOXAPARIN 40 MG/0.4 ML SYRINGE SUBCUT SCH (09:32)
[2018-02-21] MEDS: DOXYCYCLINE HYCLATE 100 MG CAPSULE PO SCH ×2 (11:58→20:53)
[2018-02-21] MEDS: METOPROLOL TARTRATE 50 MG TABLET PO SCH ×2 (11:59→20:54)
[2018-02-21] MEDS: amLODIPine 10 MG TABLET PO SCH (11:59)
[2018-02-21] MEDS: LISINOPRIL 10 MG TABLET PO SCH (11:59)
[2018-02-21] MEDS: DULoxetine 30 MG CAPSULE PO SCH (11:59)
[2018-02-21] MEDS: VENLAFAXINE 75 MG TABLET PER TUBE SCH (11:59)
[2018-02-21] MEDS: HALOPERIDOL 5 MG/ML AMP IM PRN ×2 (12:22→21:30)
[2018-02-22] MEDS: MEROPENEM 1,000 MG in SODIUM CHLORIDE 0.9% 100 ML IV SCH ×2 (00:20→08:13)
[2018-02-22] MEDS: methylPREDNISolone SOD SUC 40 MG/1 ML VIAL IV SCH ×2 (00:21→09:05)
[2018-02-22] MEDS: ALBUTEROL/IPRATROPIUM 3 ML NEB RESP TX SCH ×3 (01:49→12:44)
[2018-02-22] MEDS: FAMOTIDINE 20 MG/2 ML VIAL IV SCH (08:13)
[2018-02-22] MEDS: ENOXAPARIN 40 MG/0.4 ML SYRINGE SUBCUT SCH (08:16)
[2018-02-22] MEDS: DULoxetine 30 MG CAPSULE PO SCH (08:17)
[2018-02-22] MEDS: VENLAFAXINE 75 MG TABLET PER TUBE SCH (08:17)
[2018-02-22] MEDS: METOPROLOL TARTRATE 50 MG TABLET PO SCH (08:17)
[2018-02-22] MEDS: DOXYCYCLINE HYCLATE 100 MG CAPSULE PO SCH (08:17)
[2018-02-22] MEDS: LISINOPRIL 10 MG TABLET PO SCH (08:18)
[2018-02-22] MEDS: amLODIPine 10 MG TABLET PO SCH (08:18)
[2018-02-22] MEDS: HALOPERIDOL 5 MG/ML AMP IM PRN (08:18)
[2018-02-22] MEDS ORDERED: VANCOMYCIN INJ 2,000 MG in SODIUM CHLORIDE 0.9% 500 ML IV SCH (09:00)
[2018-02-22 14:55] VITALS: BP 174/80
== END 2018-02-22 14:15 | DRG 208 ==
LOC: EDBD → EDUNIT# → N.ED 18:40 → SUATTDRO 20:38 → N.EDINP 20:38 → N.CC 21:09
PROVIDERS: ADMIT Internal Medicine Cardiovascular Disease; ATTEND Internal Medicine

== ENCOUNTER 2018-11-11 00:53 | Inpatient (IN) ==
[2018-11-11] MEDS ORDERED: ALBUTEROL/IPRATROPIUM 3 ML NEB RESP TX STA (01:24)
[2018-11-11] MEDS ORDERED: ALBUTEROL 2.5 MG/3 ML NEB RESP TX STA (01:24)
[2018-11-11] MEDS ORDERED: SODIUM CHLORIDE 0.9% 500 ML IV STA (01:50)
[2018-11-11 02:11] LABS: ABG HCO3 25.3 MMOL/L (20-26); ABG PCO2 50.7 MM HG (35-48); ABG PH 7.343 (7.35-7.45); ABG PO2 70.4 MM HG (80-95); ABG TCO2 24.8 MMOL/L (23-27); Allen Test Positive
[2018-11-11 02:26] LABS: Basophils % 0.2 % (0.0-0.8); Eosinophils # 0.1 10*3/uL (0.0-0.87); Eosinophils % 0.6 % (0.00-10.9); Hematocrit 36.4 VOL% (42.0-52.0); Hemoglobin 10.9 GM/DL (14.0-18.0); Immature Granulocytes % 0.4 %; Immature Granulocytes Absolute 0.07 #; Lymphocytes # 0.3 10*3/uL (1.4-4.0); Mean Corpuscular HGB Conc 29.9 GM/DL (32-36); Mean Corpuscular Volume 86.7 FL (87-102); Mean Platelet Volume 9.4 FL (9.6-12.0); Monocytes % 2.5 % (1.7-12.7); Neutrophils % 94.3 % (38.7-73.9); Platelet Count 219 T/CUMM (130-400); Red Cell Distribution Width 15.2 % (9.3-17.3)
[2018-11-11 02:41] LABS: INR 1.1; PT Patient Result 11.7 SECS (9.6-12.2)
[2018-11-11 02:58] LABS: Albumin 3.1 G/DL (3.4-5.0); Bilirubin,Total 0.4 MG/DL (0.2-1.0); Osmolality,Calculated 274.2 MOS/KG (273-304); Total Protein 7.2 G/DL (6.4-8.3)
[2018-11-11] MEDS ORDERED: SODIUM CHLORIDE 0.9% 500 ML IV ONE (03:05)
[2018-11-11] MEDS ORDERED: NOREPINEPHRINE 4 MG/4 ML VIAL IV ONE (03:21)
[2018-11-11] MEDS ORDERED: VANCOMYCIN INJ 1,000 MG in SODIUM CHLORIDE 0.9% 250 ML IV STA (03:28)
[2018-11-11 03:46] LABS: Apearance,Urine Slightly Hazy (Clear); Bacteria,Urine Few /HPF (Few); Bilirubin,Urine Negative (Negative); Blood, Urine Negative (Negative); Glucose,Urine (UA) Negative (Negative); Ketones,Urine Negative (Negative); Mucus,Urine Occasional /LPF (Occasional); Nitrite,Urine Negative (Negative); Protein,Urine Negative; RBC,Urine 3 /HPF (0-4); Squamous Epithelial Cell,Urine Occasional /HPF (0-10); Urine Color Yellow (Yellow); Urine Specific Gravity 1.014 (1.001-1.035); Urine Urobilinogen < 2.0 EU/DL (0.2-1.0); WBC,Urine 122 /HPF (0-6)
[2018-11-11 04:01] LABS: Band Neutrophils 13 % (0-10); Hypochromasia 1+; Lymphocytes 3 % (20-55); Platelet Estimate Adequate; Segmented Neutrophils 80 % (50-85); Total Cells Counted 100
[2018-11-11 04:33] LABS: ABG Base Excess -2.2 MMOL/L (-2.5-2.5); ABG HCO3 22.6 MMOL/L (20-26); ABG Oxygen Saturation 98.8 % (95-100); ABG PCO2 62.5 MM HG (35-48); ABG PH 7.237 (7.35-7.45); ABG TCO2 24.4 MMOL/L (23-27); Allen Test Positive; Pt O2 Delivery Device Other
[2018-11-11] MEDS ORDERED: ALBUTEROL 2.5 MG/3 ML NEB RESP TX PRN (04:35)
[2018-11-11] MEDS ORDERED: SODIUM CHLORIDE 0.9% 2,050 ML IV ONE (04:35)
[2018-11-11] MEDS: NOREPINEPHRINE 8 MG in SODIUM CHLORIDE 0.9% 242 ML IV PRN ×3 (05:20→18:54)
[2018-11-11] MEDS ORDERED: VANCOMYCIN INJ 1,500 MG in SODIUM CHLORIDE 0.9% 500 ML IV ONE (06:00)
[2018-11-11] MEDS: PIPERACILLIN/TAZOBACTAM 3,375 MG in SODIUM CHLORIDE 0.9% 100 ML IV SCH ×3 (06:45→21:24)
[2018-11-11] MEDS: ALBUTEROL/IPRATROPIUM 3 ML NEB RESP TX SCH ×5 (07:08→23:12)
[2018-11-11] MEDS: methylPREDNISolone SOD SUC 40 MG/1 ML VIAL IV SCH ×2 (09:25→17:30)
[2018-11-11] MEDS ORDERED: FUROSEMIDE 40 MG/4 ML VIAL IV ONE (10:53)
[2018-11-11] MEDS ORDERED: PROPOFOL 1,000 MG/100 ML BOTTLE IV ONE (11:03)
[2018-11-11] MEDS ORDERED: SUCCINYLCHOLINE 200 MG/10 ML VIAL ONE (11:40)
[2018-11-11] MEDS ORDERED: PROPOFOL 200 MG/20 ML VIAL IV ONE (11:40)
[2018-11-11] MEDS ORDERED: LINACLOTIDE 145 MCG CAPSULE PO PRN (11:44)
[2018-11-11] MEDS: PROPOFOL 1,000 MG/100 ML BOTTLE IV SCH ×3 (11:45→20:44)
[2018-11-11 12:28] LABS: ABG Base Excess -5.5 MMOL/L (-2.5-2.5); ABG HCO3 19.8 MMOL/L (20-26); ABG Oxygen Saturation 96.4 % (95-100); ABG PCO2 52.5 MM HG (35-48); ABG PH 7.236 (7.35-7.45); ABG TCO2 20.6 MMOL/L (23-27); Allen Test Positive; Pt O2 Delivery Device Ventilator
[2018-11-11] MEDS: PANTOPRAZOLE 40 MG VIAL IV SCH (14:12)
[2018-11-11 15:17] VITALS: BP 100/75
[2018-11-11] MEDS: VANCOMYCIN INJ 2,250 MG in SODIUM CHLORIDE 0.9% 500 ML IV SCH (17:31)
[2018-11-11] MEDS: DESITIN 4OZ/NYSTATIN 15 GRAM MIXTURE PASTE TOP SCH ×2 (17:43→21:35)
[2018-11-11] MEDS: risperiDONE 1 MG TABLET PO SCH (21:24)
[2018-11-12] MEDS: PROPOFOL 1,000 MG/100 ML BOTTLE IV SCH ×7 (01:32→22:17)
[2018-11-12] MEDS: methylPREDNISolone SOD SUC 40 MG/1 ML VIAL IV SCH ×3 (01:47→19:17)
[2018-11-12] MEDS: ALBUTEROL/IPRATROPIUM 3 ML NEB RESP TX SCH ×5 (02:33→20:11)
[2018-11-12 04:26] LABS: Basophils % 0.2 % (0.0-0.8); Hematocrit 30.1 VOL% (42.0-52.0); Immature Granulocytes % 0.6 %; Immature Granulocytes Absolute 0.13 #; Lymphocytes # 0.6 10*3/uL (1.4-4.0); Lymphocytes % 2.6 % (21.2-54.2); Mean Corpuscular HGB Conc 29.6 GM/DL (32-36); Mean Platelet Volume 9.5 FL (9.6-12.0); Monocytes % 3.8 % (1.7-12.7); Neutrophils % 92.8 % (38.7-73.9); Platelet Count 190 T/CUMM (130-400); Red Cell Distribution Width 15.6 % (9.3-17.3); White Blood Count 21.8 T/CUMM (4-12)
[2018-11-12 04:30] LABS: Albumin 2.3 G/DL (3.4-5.0); Bilirubin,Total 0.6 MG/DL (0.2-1.0); Calcium 8.3 MG/DL (8.5-10.1); Osmolality,Calculated 283.7 MOS/KG (273-304); Total Protein 6.1 G/DL (6.4-8.3)
[2018-11-12 04:30] LABS: ABG Base Excess -0.1 MMOL/L (-2.5-2.5); ABG HCO3 24.3 MMOL/L (20-26); ABG PCO2 42.1 MM HG (35-48); ABG PH 7.382 (7.35-7.45); ABG PO2 95.8 MM HG (80-95); ABG TCO2 22.9 MMOL/L (23-27); Allen Test Positive; Pt O2 Delivery Device Ventilator
[2018-11-12] MEDS: PIPERACILLIN/TAZOBACTAM 3,375 MG in SODIUM CHLORIDE 0.9% 100 ML IV SCH ×2 (04:30→16:22)
[2018-11-12 04:49] LABS: Hemoglobin 8.9 GM/DL (14.0-18.0)
[2018-11-12 04:54] LABS: Band Neutrophils 1 % (0-10); Lymphocytes 1 % (20-55); Polychromasia Few; Segmented Neutrophils 95 % (50-85); Total Cells Counted 100
[2018-11-12 04:55] LABS: Platelet Estimate Decreased
[2018-11-12] MEDS ORDERED: FUROSEMIDE 40 MG/4 ML VIAL IV SCH (09:00)
[2018-11-12] MEDS: PANTOPRAZOLE 40 MG VIAL IV SCH (09:39)
[2018-11-12] MEDS: risperiDONE 1 MG TABLET PO SCH ×2 (09:39→21:25)
[2018-11-12] MEDS: RIVAROXABAN 10 MG TABLET PO SCH (09:39)
[2018-11-12] MEDS: DESITIN 4OZ/NYSTATIN 15 GRAM MIXTURE PASTE TOP SCH ×2 (09:40→21:52)
[2018-11-12] MEDS: VENLAFAXINE 75 MG TABLET PO SCH (10:10)
[2018-11-12] MEDS: VANCOMYCIN INJ 2,250 MG in SODIUM CHLORIDE 0.9% 500 ML IV SCH ×2 (10:53→21:24)
[2018-11-12] MEDS ORDERED: DEXTROSE 50% 25 GM/50 ML VIAL IV PRN (12:02)
[2018-11-12] MEDS ORDERED: GLUCAGON 1 MG VIAL IM PRN (12:02)
[2018-11-12] MEDS: INSULIN REGULAR 100 UNIT/ML SUBCUT SCH ×2 (17:13→23:54)
[2018-11-12] MEDS: FUROSEMIDE 40 MG/4 ML VIAL IV SCH (21:24)
[2018-11-13] MEDS: PIPERACILLIN/TAZOBACTAM 3,375 MG in SODIUM CHLORIDE 0.9% 100 ML IV SCH ×3 (00:16→17:18)
[2018-11-13] MEDS: PROPOFOL 1,000 MG/100 ML BOTTLE IV SCH ×12 (00:22→22:48)
[2018-11-13] MEDS: ALBUTEROL/IPRATROPIUM 3 ML NEB RESP TX SCH ×7 (00:29→22:58)
[2018-11-13] MEDS: methylPREDNISolone SOD SUC 40 MG/1 ML VIAL IV SCH ×3 (01:37→17:18)
[2018-11-13 03:23] LABS: ABG HCO3 23.6 MMOL/L (20-26); ABG Oxygen Saturation 98.7 % (95-100); ABG PCO2 38.7 MM HG (35-48); ABG PH 7.395 (7.35-7.45); ABG TCO2 21.4 MMOL/L (23-27)
[2018-11-13 03:24] LABS: Allen Test Positive; Pt O2 Delivery Device Ventilator
[2018-11-13 04:15] LABS: Prealbumin 12.3 MG/DL (20-40)
[2018-11-13] MEDS: INSULIN REGULAR 100 UNIT/ML SUBCUT SCH ×3 (06:27→19:15)
[2018-11-13] MEDS: DESITIN 4OZ/NYSTATIN 15 GRAM MIXTURE PASTE TOP SCH ×2 (09:00→20:19)
[2018-11-13] MEDS: RIVAROXABAN 10 MG TABLET PO SCH (09:41)
[2018-11-13] MEDS: VANCOMYCIN INJ 2,250 MG in SODIUM CHLORIDE 0.9% 500 ML IV SCH ×2 (09:42→23:30)
[2018-11-13] MEDS: risperiDONE 1 MG TABLET PO SCH ×2 (09:42→20:19)
[2018-11-13] MEDS: MULTIVITAMIN LIQUID (CENTRUM) 60 ML BOTTLE PO SCH (09:43)
[2018-11-13] MEDS: PANTOPRAZOLE 40 MG VIAL IV SCH (09:43)
[2018-11-13] MEDS: FUROSEMIDE 40 MG/4 ML VIAL IV SCH ×2 (09:44→20:17)
[2018-11-13] MEDS: VENLAFAXINE 75 MG TABLET PO SCH (09:49)
[2018-11-14] MEDS: methylPREDNISolone SOD SUC 40 MG/1 ML VIAL IV SCH ×3 (00:26→20:35)
[2018-11-14] MEDS: INSULIN REGULAR 100 UNIT/ML SUBCUT SCH ×4 (00:27→18:13)
[2018-11-14] MEDS: PIPERACILLIN/TAZOBACTAM 3,375 MG in SODIUM CHLORIDE 0.9% 100 ML IV SCH ×3 (00:28→16:55)
[2018-11-14] MEDS: PROPOFOL 1,000 MG/100 ML BOTTLE IV SCH ×12 (00:48→20:55)
[2018-11-14] MEDS: ALBUTEROL/IPRATROPIUM 3 ML NEB RESP TX SCH ×6 (02:39→22:34)
[2018-11-14 03:59] LABS: ABG Base Excess 2.1 MMOL/L (-2.5-2.5); ABG HCO3 26.3 MMOL/L (20-26); ABG Oxygen Saturation 98.2 % (95-100); ABG PCO2 41.6 MM HG (35-48); ABG PH 7.417 (7.35-7.45); ABG TCO2 24.8 MMOL/L (23-27)
[2018-11-14 04:22] LABS: Basophils % 0.1 % (0.0-0.8); Hematocrit 29.3 VOL% (42.0-52.0); Hemoglobin 9.1 GM/DL (14.0-18.0); Immature Granulocytes % 0.9 %; Immature Granulocytes Absolute 0.08 #; Lymphocytes # 0.4 10*3/uL (1.4-4.0); Lymphocytes % 4.3 % (21.2-54.2); Mean Corpuscular HGB Conc 31.1 GM/DL (32-36); Mean Corpuscular Volume 83.2 FL (87-102); Monocytes % 3.3 % (1.7-12.7); NRBC # 0.06 10*3/uL; Neutrophils % 91.4 % (38.7-73.9); Platelet Count 216 T/CUMM (130-400); Red Blood Count 3.52 MC/CUMM (3.8-5.5); Red Cell Distribution Width 15.8 % (9.3-17.3)
[2018-11-14 04:26] LABS: White Blood Count 8.9 T/CUMM (4-12)
[2018-11-14 04:31] LABS: Calcium 8.4 MG/DL (8.5-10.1); Osmolality,Calculated 301.1 MOS/KG (273-304)
[2018-11-14 04:35] LABS: Hypochromasia 1+; Lymphocytes 4 % (20-55); Nucleated Red Blood Cells 3 (0-5); Platelet Estimate Adequate; Segmented Neutrophils 93 % (50-85); Total Cells Counted 100
[2018-11-14] MEDS: DESITIN 4OZ/NYSTATIN 15 GRAM MIXTURE PASTE TOP SCH ×2 (09:00→20:36)
[2018-11-14] MEDS: FUROSEMIDE 40 MG/4 ML VIAL IV SCH ×2 (09:52→20:35)
[2018-11-14] MEDS: RIVAROXABAN 10 MG TABLET PO SCH (09:53)
[2018-11-14] MEDS: VENLAFAXINE 75 MG TABLET PO SCH (09:53)
[2018-11-14] MEDS: PANTOPRAZOLE 40 MG VIAL IV SCH (09:53)
[2018-11-14] MEDS: risperiDONE 1 MG TABLET PO SCH ×2 (09:53→20:35)
[2018-11-14] MEDS: MULTIVITAMIN LIQUID (CENTRUM) 60 ML BOTTLE PO SCH (10:26)
[2018-11-15] MEDS: PIPERACILLIN/TAZOBACTAM 3,375 MG in SODIUM CHLORIDE 0.9% 100 ML IV SCH ×4 (00:02→23:51)
[2018-11-15] MEDS: INSULIN REGULAR 100 UNIT/ML SUBCUT SCH ×5 (00:34→23:55)
[2018-11-15] MEDS: PROPOFOL 1,000 MG/100 ML BOTTLE IV SCH ×9 (01:30→21:16)
[2018-11-15] MEDS: ALBUTEROL/IPRATROPIUM 3 ML NEB RESP TX SCH ×6 (02:33→23:27)
[2018-11-15 04:32] LABS: ABG Base Excess 2.7 MMOL/L (-2.5-2.5); ABG HCO3 26.8 MMOL/L (20-26); ABG Oxygen Saturation 97.5 % (95-100); ABG PCO2 41.2 MM HG (35-48); ABG PH 7.428 (7.35-7.45); ABG PO2 93.1 MM HG (80-95); ABG TCO2 24.8 MMOL/L (23-27)
[2018-11-15 05:29] LABS: Calcium 8.5 MG/DL (8.5-10.1)
[2018-11-15] MEDS: methylPREDNISolone SOD SUC 40 MG/1 ML VIAL IV SCH ×2 (08:22→20:54)
[2018-11-15] MEDS: MULTIVITAMIN LIQUID (CENTRUM) 60 ML BOTTLE PO SCH (09:31)
[2018-11-15] MEDS: RIVAROXABAN 10 MG TABLET PO SCH (09:32)
[2018-11-15] MEDS: FUROSEMIDE 40 MG/4 ML VIAL IV SCH ×2 (09:32→20:55)
[2018-11-15] MEDS: VENLAFAXINE 75 MG TABLET PO SCH (09:32)
[2018-11-15] MEDS: DESITIN 4OZ/NYSTATIN 15 GRAM MIXTURE PASTE TOP SCH ×2 (09:32→21:31)
[2018-11-15] MEDS: PANTOPRAZOLE 40 MG VIAL IV SCH (09:32)
[2018-11-15] MEDS: risperiDONE 1 MG TABLET PO SCH ×2 (09:32→20:54)
[2018-11-16] MEDS: PROPOFOL 1,000 MG/100 ML BOTTLE IV SCH ×8 (00:09→23:26)
[2018-11-16] MEDS: ALBUTEROL/IPRATROPIUM 3 ML NEB RESP TX SCH ×6 (04:22→23:07)
[2018-11-16 04:41] LABS: ABG Base Excess 6.3 MMOL/L (-2.5-2.5); ABG Oxygen Saturation 97.6 % (95-100); ABG PCO2 39.3 MM HG (35-48); ABG PO2 97.9 MM HG (80-95); ABG TCO2 31.2 MMOL/L (23-27); Allen Test Positive; Pt O2 Delivery Device Ventilator
[2018-11-16] MEDS: INSULIN REGULAR 100 UNIT/ML SUBCUT SCH ×3 (06:27→18:17)
[2018-11-16] MEDS: risperiDONE 1 MG TABLET PO SCH ×2 (08:14→20:48)
[2018-11-16] MEDS: RIVAROXABAN 10 MG TABLET PO SCH (08:14)
[2018-11-16] MEDS: VENLAFAXINE 75 MG TABLET PO SCH (08:14)
[2018-11-16] MEDS: FUROSEMIDE 40 MG/4 ML VIAL IV SCH (08:16)
[2018-11-16] MEDS: methylPREDNISolone SOD SUC 40 MG/1 ML VIAL IV SCH ×2 (08:22→20:48)
[2018-11-16] MEDS: PANTOPRAZOLE 40 MG VIAL IV SCH (08:22)
[2018-11-16] MEDS: MULTIVITAMIN LIQUID (CENTRUM) 60 ML BOTTLE PO SCH (08:23)
[2018-11-16] MEDS: DESITIN 4OZ/NYSTATIN 15 GRAM MIXTURE PASTE TOP SCH ×2 (08:24→20:57)
[2018-11-16] MEDS: PIPERACILLIN/TAZOBACTAM 3,375 MG in SODIUM CHLORIDE 0.9% 100 ML IV SCH ×2 (08:27→15:40)
[2018-11-16 09:01] LABS: Calcium 8.8 MG/DL (8.5-10.1); Osmolality,Calculated 311.3 MOS/KG (273-304)
[2018-11-16 10:12] LABS: Basophils % 0.2 % (0.0-0.8); Hematocrit 32.1 VOL% (42.0-52.0); Hemoglobin 9.8 GM/DL (14.0-18.0); Immature Granulocytes % 2.3 %; Immature Granulocytes Absolute 0.27 #; Lymphocytes # 0.9 10*3/uL (1.4-4.0); Lymphocytes % 7.6 % (21.2-54.2); Mean Corpuscular HGB Conc 30.5 GM/DL (32-36); Mean Corpuscular Volume 83.8 FL (87-102); Mean Platelet Volume 9.3 FL (9.6-12.0); Monocytes % 6.4 % (1.7-12.7); NRBC # 0.02 10*3/uL; Neutrophils % 83.5 % (38.7-73.9); Platelet Count 250 T/CUMM (130-400); Red Blood Count 3.83 MC/CUMM (3.8-5.5); Red Cell Distribution Width 15.8 % (9.3-17.3)
[2018-11-16] MEDS: POTASSIUM CHLORIDE 20 MEQ/15 ML UDCUP PER TUBE PRN ×2 (16:05→18:50)
[2018-11-16] MEDS: DOCUSATE SODIUM 100 MG/10 ML UDCUP PO SCH (20:48)
[2018-11-16] MEDS: METOPROLOL TARTRATE 25 MG TABLET PO SCH (20:48)
[2018-11-16] MEDS: POLYETHYLENE GLYCOL POWDER 17 GM PACK PO SCH (21:06)
[2018-11-17] MEDS: POTASSIUM CHLORIDE 20 MEQ/15 ML UDCUP PER TUBE PRN ×2 (00:23→02:10)
[2018-11-17] MEDS: PIPERACILLIN/TAZOBACTAM 3,375 MG in SODIUM CHLORIDE 0.9% 100 ML IV SCH ×4 (00:23→23:44)
[2018-11-17] MEDS: INSULIN REGULAR 100 UNIT/ML SUBCUT SCH ×5 (00:27→23:48)
[2018-11-17] MEDS: ALBUTEROL/IPRATROPIUM 3 ML NEB RESP TX SCH ×6 (02:41→23:41)
[2018-11-17] MEDS: PROPOFOL 1,000 MG/100 ML BOTTLE IV SCH ×7 (02:49→21:32)
[2018-11-17 04:26] LABS: ABG Base Excess 6.1 MMOL/L (-2.5-2.5); ABG HCO3 30.2 MMOL/L (20-26); ABG Oxygen Saturation 94.5 % (95-100); ABG PCO2 41.7 MM HG (35-48); ABG PH 7.478 (7.35-7.45); ABG PO2 74.3 MM HG (80-95); ABG TCO2 31.5 MMOL/L (23-27); Allen Test Positive; Pt O2 Delivery Device Ventilator
[2018-11-17 05:45] LABS: Osmolality,Calculated 314.9 MOS/KG (273-304)
[2018-11-17] MEDS ORDERED: FUROSEMIDE 40 MG TABLET PO SCH (09:00)
[2018-11-17] MEDS: PANTOPRAZOLE 40 MG VIAL IV SCH (09:32)
[2018-11-17] MEDS: POLYETHYLENE GLYCOL POWDER 17 GM PACK PO SCH (09:33)
[2018-11-17] MEDS: RIVAROXABAN 10 MG TABLET PO SCH (09:33)
[2018-11-17] MEDS: VENLAFAXINE 75 MG TABLET PO SCH (09:33)
[2018-11-17] MEDS: risperiDONE 1 MG TABLET PO SCH ×2 (09:33→20:55)
[2018-11-17] MEDS: SENNA 8.6 MG TABLET PO SCH (09:33)
[2018-11-17] MEDS: methylPREDNISolone SOD SUC 40 MG/1 ML VIAL IV SCH ×2 (09:43→20:55)
[2018-11-17] MEDS: MULTIVITAMIN LIQUID (CENTRUM) 60 ML BOTTLE PO SCH (09:50)
[2018-11-17] MEDS: METOPROLOL TARTRATE 25 MG TABLET PO SCH ×2 (09:50→20:55)
[2018-11-17] MEDS: DESITIN 4OZ/NYSTATIN 15 GRAM MIXTURE PASTE TOP SCH ×2 (09:58→21:42)
[2018-11-17] MEDS: DOCUSATE SODIUM 100 MG/10 ML UDCUP PO SCH (20:55)
[2018-11-18] MEDS: PROPOFOL 1,000 MG/100 ML BOTTLE IV SCH ×8 (01:03→22:34)
[2018-11-18] MEDS: ALBUTEROL/IPRATROPIUM 3 ML NEB RESP TX SCH ×5 (03:48→19:36)
[2018-11-18 04:10] LABS: ABG Base Excess 7.5 MMOL/L (-2.5-2.5); ABG HCO3 31.2 MMOL/L (20-26); ABG Oxygen Saturation 97.2 % (95-100); ABG PCO2 39.4 MM HG (35-48); ABG PH 7.506 (7.35-7.45); ABG PO2 84.8 MM HG (80-95); ABG TCO2 27.6 MMOL/L (23-27); Pt O2 Delivery Device Ventilator
[2018-11-18 05:41] LABS: Basophils % 0.1 % (0.0-0.8); Hematocrit 32.6 VOL% (42.0-52.0); Hemoglobin 9.8 GM/DL (14.0-18.0); Immature Granulocytes % 1.7 %; Immature Granulocytes Absolute 0.19 #; Lymphocytes # 0.9 10*3/uL (1.4-4.0); Lymphocytes % 8.2 % (21.2-54.2); Mean Corpuscular HGB Conc 30.1 GM/DL (32-36); Mean Corpuscular Volume 85.1 FL (87-102); Mean Platelet Volume 10.2 FL (9.6-12.0); Platelet Count 282 T/CUMM (130-400); Red Blood Count 3.83 MC/CUMM (3.8-5.5); Red Cell Distribution Width 15.9 % (9.3-17.3); White Blood Count 11.1 T/CUMM (4-12)
[2018-11-18] MEDS: INSULIN REGULAR 100 UNIT/ML SUBCUT SCH ×3 (06:08→17:45)
[2018-11-18 06:15] LABS: Calcium 9.1 MG/DL (8.5-10.1); Osmolality,Calculated 316.6 MOS/KG (273-304)
[2018-11-18 06:17] LABS: Prealbumin 41.7 MG/DL (20-40)
[2018-11-18] MEDS: POTASSIUM CHLORIDE 20 MEQ/15 ML UDCUP PER TUBE PRN (06:31)
[2018-11-18] MEDS: PANTOPRAZOLE 40 MG VIAL IV SCH (08:58)
[2018-11-18] MEDS: PIPERACILLIN/TAZOBACTAM 3,375 MG in SODIUM CHLORIDE 0.9% 100 ML IV SCH ×3 (08:58→23:48)
[2018-11-18] MEDS: methylPREDNISolone SOD SUC 40 MG/1 ML VIAL IV SCH ×2 (08:58→20:51)
[2018-11-18] MEDS: RIVAROXABAN 10 MG TABLET PO SCH (09:01)
[2018-11-18] MEDS: SENNA 8.6 MG TABLET PO SCH (09:01)
[2018-11-18] MEDS: POLYETHYLENE GLYCOL POWDER 17 GM PACK PO SCH (09:01)
[2018-11-18] MEDS: METOPROLOL TARTRATE 25 MG TABLET PO SCH ×2 (09:01→20:51)
[2018-11-18] MEDS: risperiDONE 1 MG TABLET PO SCH ×2 (09:01→20:51)
[2018-11-18] MEDS: DESITIN 4OZ/NYSTATIN 15 GRAM MIXTURE PASTE TOP SCH ×2 (09:21→20:56)
[2018-11-18] MEDS: VENLAFAXINE 75 MG TABLET PO SCH (09:21)
[2018-11-18] MEDS: MULTIVITAMIN LIQUID (CENTRUM) 60 ML BOTTLE PO SCH (09:21)
[2018-11-18] MEDS ORDERED: METOCLOPRAMIDE 10 MG/2 ML VIAL IV ONE (14:29)
[2018-11-18] MEDS: DOCUSATE SODIUM 100 MG/10 ML UDCUP PO SCH (20:51)
[2018-11-19] MEDS: INSULIN REGULAR 100 UNIT/ML SUBCUT SCH ×4 (00:23→18:27)
[2018-11-19] MEDS: ALBUTEROL/IPRATROPIUM 3 ML NEB RESP TX SCH ×7 (01:51→23:00)
[2018-11-19] MEDS: PROPOFOL 1,000 MG/100 ML BOTTLE IV SCH ×7 (01:55→23:50)
[2018-11-19 03:18] LABS: ABG HCO3 28.6 MMOL/L (20-26); ABG Oxygen Saturation 96.2 % (95-100); ABG PCO2 38.3 MM HG (35-48); ABG PH 7.491 (7.35-7.45); ABG PO2 83.5 MM HG (80-95); ABG TCO2 29.8 MMOL/L (23-27); Allen Test Positive; Pt O2 Delivery Device Ventilator
[2018-11-19 04:55] LABS: Basophils % 0.1 % (0.0-0.8); Hematocrit 32.9 VOL% (42.0-52.0); Hemoglobin 9.8 GM/DL (14.0-18.0); Immature Granulocytes Absolute 0.09 #; Lymphocytes # 0.8 10*3/uL (1.4-4.0); Lymphocytes % 8.5 % (21.2-54.2); Mean Corpuscular HGB Conc 29.8 GM/DL (32-36); Mean Corpuscular Volume 86.8 FL (87-102); Mean Platelet Volume 9.7 FL (9.6-12.0); Monocytes % 4.2 % (1.7-12.7); Neutrophils % 86.2 % (38.7-73.9); Platelet Count 276 T/CUMM (130-400); Red Blood Count 3.79 MC/CUMM (3.8-5.5); White Blood Count 9.1 T/CUMM (4-12)
[2018-11-19 05:36] LABS: Albumin 2.5 G/DL (3.4-5.0); Bilirubin,Total 0.4 MG/DL (0.2-1.0); Calcium 9.3 MG/DL (8.5-10.1); Osmolality,Calculated 311.9 MOS/KG (273-304); Total Protein 6.5 G/DL (6.4-8.3)
[2018-11-19] MEDS: methylPREDNISolone SOD SUC 40 MG/1 ML VIAL IV SCH ×2 (09:09→20:43)
[2018-11-19] MEDS: METOPROLOL TARTRATE 25 MG TABLET PO SCH ×2 (09:09→20:44)
[2018-11-19] MEDS: PANTOPRAZOLE 40 MG VIAL IV SCH (09:09)
[2018-11-19] MEDS: RIVAROXABAN 10 MG TABLET PO SCH (09:09)
[2018-11-19] MEDS: SENNA 8.6 MG TABLET PO SCH (09:09)
[2018-11-19] MEDS: POLYETHYLENE GLYCOL POWDER 17 GM PACK PO SCH (09:09)
[2018-11-19] MEDS: risperiDONE 1 MG TABLET PO SCH ×2 (09:09→20:43)
[2018-11-19] MEDS: PIPERACILLIN/TAZOBACTAM 3,375 MG in SODIUM CHLORIDE 0.9% 100 ML IV SCH ×3 (09:09→23:49)
[2018-11-19] MEDS: VENLAFAXINE 75 MG TABLET PO SCH (09:09)
[2018-11-19] MEDS: DESITIN 4OZ/NYSTATIN 15 GRAM MIXTURE PASTE TOP SCH ×2 (09:10→20:44)
[2018-11-19] MEDS: MULTIVITAMIN LIQUID (CENTRUM) 60 ML BOTTLE PO SCH (12:27)
[2018-11-19] MEDS: DOCUSATE SODIUM 100 MG/10 ML UDCUP PO SCH (20:43)
[2018-11-20] MEDS: INSULIN REGULAR 100 UNIT/ML SUBCUT SCH ×4 (00:22→18:40)
[2018-11-20] MEDS: PROPOFOL 1,000 MG/100 ML BOTTLE IV SCH ×6 (02:47→20:54)
[2018-11-20] MEDS: ALBUTEROL/IPRATROPIUM 3 ML NEB RESP TX SCH ×6 (03:25→23:57)
[2018-11-20 04:31] LABS: ABG Base Excess 2.9 MMOL/L (-2.5-2.5); ABG HCO3 26.6 MMOL/L (20-26); ABG Oxygen Saturation 97.1 % (95-100); ABG PH 7.474 (7.35-7.45); ABG PO2 93.6 MM HG (80-95); ABG TCO2 27.7 MMOL/L (23-27); Allen Test Positive; Pt O2 Delivery Device Ventilator
[2018-11-20 05:14] LABS: Basophils % 0.1 % (0.0-0.8); Hematocrit 33.1 VOL% (42.0-52.0); Hemoglobin 9.7 GM/DL (14.0-18.0); Immature Granulocytes Absolute 0.09 #; Lymphocytes # 0.9 10*3/uL (1.4-4.0); Lymphocytes % 9.8 % (21.2-54.2); Mean Corpuscular HGB Conc 29.3 GM/DL (32-36); Mean Corpuscular Volume 86.6 FL (87-102); Monocytes % 4.6 % (1.7-12.7); Neutrophils % 84.5 % (38.7-73.9); Platelet Count 275 T/CUMM (130-400); Red Blood Count 3.82 MC/CUMM (3.8-5.5); Red Cell Distribution Width 15.9 % (9.3-17.3); White Blood Count 8.7 T/CUMM (4-12)
[2018-11-20 05:35] LABS: Albumin 2.4 G/DL (3.4-5.0); Bilirubin,Total 0.5 MG/DL (0.2-1.0); Calcium 9.1 MG/DL (8.5-10.1); Total Protein 6.6 G/DL (6.4-8.3)
[2018-11-20] MEDS: PIPERACILLIN/TAZOBACTAM 3,375 MG in SODIUM CHLORIDE 0.9% 100 ML IV SCH ×2 (09:33→16:58)
[2018-11-20] MEDS: methylPREDNISolone SOD SUC 40 MG/1 ML VIAL IV SCH ×2 (09:34→20:17)
[2018-11-20] MEDS: PANTOPRAZOLE 40 MG VIAL IV SCH (09:34)
[2018-11-20] MEDS: POLYETHYLENE GLYCOL POWDER 17 GM PACK PO SCH (09:38)
[2018-11-20] MEDS: METOPROLOL TARTRATE 25 MG TABLET PO SCH (10:12)
[2018-11-20] MEDS: RIVAROXABAN 10 MG TABLET PO SCH (10:12)
[2018-11-20] MEDS: DESITIN 4OZ/NYSTATIN 15 GRAM MIXTURE PASTE TOP SCH ×2 (10:13→20:08)
[2018-11-20] MEDS: risperiDONE 1 MG TABLET PO SCH ×2 (10:13→20:20)
[2018-11-20] MEDS: SENNA 8.6 MG TABLET PO SCH (10:13)
[2018-11-20] MEDS: MULTIVITAMIN LIQUID (CENTRUM) 60 ML BOTTLE PO SCH (10:14)
[2018-11-20] MEDS: VENLAFAXINE 75 MG TABLET PO SCH (10:14)
[2018-11-20] MEDS: FUROSEMIDE 40 MG/4 ML VIAL IV SCH (16:56)
[2018-11-20] MEDS: CARVEDILOL 6.25 MG TABLET PO SCH (17:48)
[2018-11-20] MEDS: DOCUSATE SODIUM 100 MG/10 ML UDCUP PO SCH (20:08)
[2018-11-21] MEDS: PROPOFOL 1,000 MG/100 ML BOTTLE IV SCH ×4 (00:26→11:36)
[2018-11-21] MEDS: INSULIN REGULAR 100 UNIT/ML SUBCUT SCH ×4 (00:28→18:09)
[2018-11-21] MEDS: PIPERACILLIN/TAZOBACTAM 3,375 MG in SODIUM CHLORIDE 0.9% 100 ML IV SCH ×3 (00:38→17:12)
[2018-11-21] MEDS: ALBUTEROL/IPRATROPIUM 3 ML NEB RESP TX SCH ×6 (03:35→23:15)
[2018-11-21 03:56] LABS: Pt O2 Delivery Device Ventilator
[2018-11-21 04:01] LABS: ABG Base Excess 2.8 MMOL/L (-2.5-2.5); ABG HCO3 26.8 MMOL/L (20-26); ABG Oxygen Saturation 97.1 % (95-100); ABG PCO2 39.3 MM HG (35-48); ABG PH 7.452 (7.35-7.45); ABG PO2 92.7 MM HG (80-95)
[2018-11-21 04:50] LABS: Basophils % 0.1 % (0.0-0.8); Hematocrit 33.7 VOL% (42.0-52.0); Immature Granulocytes % 0.8 %; Immature Granulocytes Absolute 0.09 #; Lymphocytes % 8.7 % (21.2-54.2); Mean Corpuscular HGB Conc 29.7 GM/DL (32-36); Mean Corpuscular Volume 86.2 FL (87-102); Mean Platelet Volume 9.9 FL (9.6-12.0); Monocytes % 4.2 % (1.7-12.7); NRBC # 0.02 10*3/uL; Neutrophils % 86.2 % (38.7-73.9); Platelet Count 296 T/CUMM (130-400); Red Blood Count 3.91 MC/CUMM (3.8-5.5); Red Cell Distribution Width 15.8 % (9.3-17.3); White Blood Count 11.4 T/CUMM (4-12)
[2018-11-21 05:06] LABS: Prealbumin 47.3 MG/DL (20-40)
[2018-11-21 05:12] LABS: Albumin 2.6 G/DL (3.4-5.0); Bilirubin,Total 0.7 MG/DL (0.2-1.0); Calcium 9.4 MG/DL (8.5-10.1); Osmolality,Calculated 300.6 MOS/KG (273-304); Total Protein 6.7 G/DL (6.4-8.3)
[2018-11-21] MEDS: MULTIVITAMIN LIQUID (CENTRUM) 60 ML BOTTLE PO SCH (08:36)
[2018-11-21] MEDS: SENNA 8.6 MG TABLET PO SCH (08:37)
[2018-11-21] MEDS: risperiDONE 1 MG TABLET PO SCH ×2 (08:37→21:00)
[2018-11-21] MEDS: RIVAROXABAN 10 MG TABLET PO SCH (08:37)
[2018-11-21] MEDS: POLYETHYLENE GLYCOL POWDER 17 GM PACK PO SCH (08:37)
[2018-11-21] MEDS: FUROSEMIDE 40 MG/4 ML VIAL IV SCH ×2 (08:37→17:08)
[2018-11-21] MEDS: CARVEDILOL 6.25 MG TABLET PO SCH ×2 (08:37→17:56)
[2018-11-21] MEDS: VENLAFAXINE 75 MG TABLET PO SCH (08:37)
[2018-11-21] MEDS: methylPREDNISolone SOD SUC 40 MG/1 ML VIAL IV SCH ×2 (08:38→21:07)
[2018-11-21] MEDS: PANTOPRAZOLE 40 MG VIAL IV SCH (08:38)
[2018-11-21] MEDS: DESITIN 4OZ/NYSTATIN 15 GRAM MIXTURE PASTE TOP SCH ×2 (09:15→21:00)
[2018-11-21 13:34] LABS: ABG Base Excess 4.4 MMOL/L (-2.5-2.5); ABG HCO3 28.3 MMOL/L (20-26); ABG Oxygen Saturation 94.4 % (95-100); ABG PCO2 41.2 MM HG (35-48); ABG PH 7.451 (7.35-7.45); ABG PO2 70.6 MM HG (80-95); ABG TCO2 25.8 MMOL/L (23-27); Allen Test Positive; Pt O2 Delivery Device BIPAP
[2018-11-21] MEDS: DOCUSATE SODIUM 100 MG/10 ML UDCUP PO SCH (20:59)
[2018-11-22] MEDS: PIPERACILLIN/TAZOBACTAM 3,375 MG in SODIUM CHLORIDE 0.9% 100 ML IV SCH (01:02)
[2018-11-22] MEDS: INSULIN REGULAR 100 UNIT/ML SUBCUT SCH ×3 (01:03→14:02)
[2018-11-22] MEDS: ALBUTEROL/IPRATROPIUM 3 ML NEB RESP TX SCH ×4 (03:05→14:57)
[2018-11-22 04:18] LABS: ABG Base Excess 5.2 MMOL/L (-2.5-2.5); ABG HCO3 28.8 MMOL/L (20-26); ABG Oxygen Saturation 90.7 % (95-100); ABG PCO2 38.6 MM HG (35-48); ABG PH 7.491 (7.35-7.45); ABG PO2 58.6 MM HG (80-95)
[2018-11-22 04:36] LABS: Basophils % 0.1 % (0.0-0.8); Hematocrit 34.9 VOL% (42.0-52.0); Hemoglobin 10.7 GM/DL (14.0-18.0); Immature Granulocytes % 0.8 %; Lymphocytes % 7.9 % (21.2-54.2); Mean Corpuscular HGB Conc 30.7 GM/DL (32-36); Mean Corpuscular Volume 84.7 FL (87-102); Monocytes % 5.4 % (1.7-12.7); Neutrophils % 85.8 % (38.7-73.9); Platelet Count 310 T/CUMM (130-400); Red Blood Count 4.12 MC/CUMM (3.8-5.5); Red Cell Distribution Width 15.8 % (9.3-17.3); White Blood Count 12.3 T/CUMM (4-12)
[2018-11-22 04:40] LABS: Calcium 9.1 MG/DL (8.5-10.1); Osmolality,Calculated 302.4 MOS/KG (273-304)
[2018-11-22] MEDS: CARVEDILOL 6.25 MG TABLET PO SCH (09:26)
[2018-11-22] MEDS ORDERED: AMOXICILLIN/CLAV ES 600 125 ML/BOTTLE PER TUBE SCH (09:30)
[2018-11-22] MEDS: FUROSEMIDE 40 MG/4 ML VIAL IV SCH (09:40)
[2018-11-22] MEDS: POTASSIUM CHLORIDE RIDER 20 MEQ in PREMIX 1 EACH IV SCH ×2 (11:15→13:49)
[2018-11-22] MEDS: POLYETHYLENE GLYCOL POWDER 17 GM PACK PO SCH (13:47)
[2018-11-22] MEDS: MULTIVITAMIN LIQUID (CENTRUM) 60 ML BOTTLE PO SCH (13:47)
[2018-11-22] MEDS: SENNA 8.6 MG TABLET PO SCH (13:47)
[2018-11-22] MEDS: DESITIN 4OZ/NYSTATIN 15 GRAM MIXTURE PASTE TOP SCH (13:47)
[2018-11-22] MEDS: VENLAFAXINE 75 MG TABLET PO SCH (13:47)
[2018-11-22] MEDS: risperiDONE 1 MG TABLET PO SCH (13:47)
[2018-11-22] MEDS: RIVAROXABAN 10 MG TABLET PO SCH (13:48)
[2018-11-22] MEDS: POTASSIUM CHLORIDE 20 MEQ/15 ML UDCUP PER TUBE SCH ×2 (13:48→14:39)
[2018-11-22] MEDS ORDERED: AMOXICILLIN/CLAV ES 600 125 ML/BOTTLE PO SCH (13:55)
[2018-11-22] MEDS ORDERED: PIPERACILLIN/TAZOBACTAM 3,375 MG in SODIUM CHLORIDE 0.9% 100 ML IV SCH (14:30)
[2018-11-22] MEDS ORDERED: methylPREDNISolone SOD SUC 40 MG/1 ML VIAL IV SCH (14:30)
[2018-11-22] MEDS ORDERED: FUROSEMIDE 40 MG TABLET PO SCH (16:00)
[2018-11-22] MEDS ORDERED: predniSONE 20 MG TABLET PO SCH (21:00)
[2018-11-22] MEDS ORDERED: RANITIDINE 150 MG/10 ML 30 ML BOTTLE PER TUBE SCH (21:00)
[2018-11-22] MEDS ORDERED: predniSONE 20 MG TABLET PER TUBE SCH (21:00)
[2018-11-23] MEDS ORDERED: FUROSEMIDE 40 MG/4 ML VIAL IV SCH (09:00)
== END 2018-11-22 17:20 | DRG 870 ==
LOC: EDUNIT# → EDBD → N.ED 00:53 → SUATTDRO 04:35 → N.EDINP 04:35 → N.CC 05:04
PROVIDERS: ADMIT Internal Medicine; ATTEND Internal Medicine

== ENCOUNTER 2019-03-23 16:06 | Inpatient (IN) ==
[2019-03-23 17:10] LABS: Allen Test Positive
[2019-03-23 17:11] LABS: ABG Base Excess 5.3 MMOL/L (-2.5-2.5); ABG HCO3 29.3 MMOL/L (20-26); ABG Oxygen Saturation 99.5 % (95-100); ABG TCO2 34.1 MMOL/L (23-27)
[2019-03-23 17:14] LABS: ABG PCO2 92.8 MM HG (35-48); ABG PH 7.205 (7.35-7.45)
[2019-03-23 17:18] LABS: Basophils % 0.2 % (0.0-0.8); Eosinophils % 0.3 % (0.00-10.9); Hematocrit 36.6 VOL% (42.0-52.0); Hemoglobin 10.5 GM/DL (14.0-18.0); Immature Granulocytes % 0.6 %; Immature Granulocytes Absolute 0.06 #; Lymphocytes # 0.8 10*3/uL (1.4-4.0); Lymphocytes % 7.1 % (21.2-54.2); Mean Corpuscular HGB Conc 28.7 GM/DL (32-36); Mean Corpuscular Volume 91.7 FL (87-102); Mean Platelet Volume 9.3 FL (9.6-12.0); Monocytes % 4.3 % (1.7-12.7); Neutrophils % 87.5 % (38.7-73.9); Platelet Count 253 T/CUMM (130-400); Red Blood Count 3.99 MC/CUMM (3.8-5.5); Red Cell Distribution Width 15.6 % (9.3-17.3); White Blood Count 10.6 T/CUMM (4-12)
[2019-03-23] MEDS ORDERED: ALBUTEROL/IPRATROPIUM 3 ML NEB RESP TX STA (17:21)
[2019-03-23] MEDS ORDERED: methylPREDNISolone SOD SUC 125 MG/2 ML VIAL IV STA (17:21)
[2019-03-23] MEDS ORDERED: methylPREDNISolone SOD SUC 125 MG/2 ML VIAL ONE (17:22)
[2019-03-23 17:27] LABS: INR 1.2; PT Patient Result 12.6 SECS (9.6-12.2); Partial Thromboplastin Time 33.4 SECS (20.8-36.0)
[2019-03-23 17:39] LABS: Alanine Aminotransferase 32 U/L (16-61); Albumin 3.1 G/DL (3.4-5.0); Alkaline Phosphatase 152 U/L (45-117); Aspartate Amino Transferase 29 U/L (0-37); Blood Urea Nitrogen 16 MG/DL (7-18); Calcium 8.9 MG/DL (8.5-10.1); Estimated Glom Filtration Rate 133 ML/MIN; Glucose 118 MG/DL (74-106); Total Protein 7.3 G/DL (6.4-8.3); Troponin I < 0.015 NG/ML (0.00-0.045)
[2019-03-23] MEDS ORDERED: GLUCAGON 1 MG VIAL IM PRN (18:07)
[2019-03-23] MEDS ORDERED: DOCUSATE SODIUM 100 MG CAPSULE PO PRN (18:07)
[2019-03-23] MEDS ORDERED: ONDANSETRON 4 MG/2 ML VIAL IV PRN (18:07)
[2019-03-23] MEDS ORDERED: BISACODYL 5 MG TABLET PO PRN (18:07)
[2019-03-23] MEDS ORDERED: DEXTROSE 10% 25 GM/250 ML BAG IV PRN (18:07)
[2019-03-23] MEDS ORDERED: cefTRIAXone 1,000 MG in SYRINGE 1 EACH IV SCH (18:30)
[2019-03-23] MEDS ORDERED: methylPREDNISolone SOD SUC 125 MG/2 ML VIAL IV SCH (18:30)
[2019-03-23] MEDS ORDERED: SODIUM CHLORIDE 0.9% 100 ML IV ONE (18:52)
[2019-03-23] MEDS: ALBUTEROL/IPRATROPIUM 3 ML NEB RESP TX SCH (18:55)
[2019-03-23 19:15] LABS: Apearance,Urine CLEAR (Clear); Bacteria,Urine Occasional /HPF (Few); Bilirubin,Urine Negative (Negative); Blood, Urine Negative (Negative); Glucose,Urine (UA) Negative (Negative); Ketones,Urine Negative (Negative); Nitrite,Urine Negative (Negative); Protein,Urine Negative; RBC,Urine 2 /HPF (0-4); Squamous Epithelial Cell,Urine Occasional /HPF (0-10); Urine Color Straw (Yellow); Urine Specific Gravity 1.005 (1.001-1.035); Urine Urobilinogen < 2.0 EU/DL (0.2-1.0); WBC,Urine 7 /HPF (0-6)
[2019-03-23] MEDS: INSULIN REGULAR 100 UNIT/ML SUBCUT SCH (20:05)
[2019-03-23] MEDS: AZITHROMYCIN INJ 500 MG in SODIUM CHLORIDE 0.9% 250 ML IV SCH (21:30)
[2019-03-23] MEDS ORDERED: HALOPERIDOL 5 MG/ML AMP IM ONE (22:46)
[2019-03-23 23:38] LABS: ABG Base Excess 6.4 MMOL/L (-2.5-2.5); ABG HCO3 30.2 MMOL/L (20-26); ABG Oxygen Saturation 97.9 % (95-100); ABG PCO2 66.5 MM HG (35-48); ABG PH 7.324 (7.35-7.45); ABG TCO2 31.4 MMOL/L (23-27); Allen Test Positive; Pt O2 Delivery Device BIPAP
[2019-03-24] MEDS: ALBUTEROL/IPRATROPIUM 3 ML NEB RESP TX SCH ×4 (01:33→20:00)
[2019-03-24 04:21] LABS: ABG Base Excess 7.1 MMOL/L (-2.5-2.5); ABG HCO3 30.9 MMOL/L (20-26); ABG Oxygen Saturation 97.8 % (95-100); ABG PCO2 68.8 MM HG (35-48); ABG PH 7.322 (7.35-7.45); ABG PO2 99.7 MM HG (80-95); ABG TCO2 32.2 MMOL/L (23-27); Allen Test Positive; Pt O2 Delivery Device BIPAP
[2019-03-24 05:57] LABS: Basophils % 0.1 % (0.0-0.8); Immature Granulocytes % 0.6 %; Immature Granulocytes Absolute 0.05 #; Lymphocytes # 0.7 10*3/uL (1.4-4.0); Lymphocytes % 8.1 % (21.2-54.2); Mean Platelet Volume 9.3 FL (9.6-12.0); Monocytes % 1.1 % (1.7-12.7); Neutrophils % 90.1 % (38.7-73.9); Platelet Count 270 T/CUMM (130-400); Red Blood Count 4.24 MC/CUMM (3.8-5.5); Red Cell Distribution Width 15.3 % (9.3-17.3); White Blood Count 8.9 T/CUMM (4-12)
[2019-03-24 06:18] LABS: Calcium 9.1 MG/DL (8.5-10.1); Osmolality,Calculated 276.7 MOS/KG (273-304)
[2019-03-24 06:27] LABS: Hematocrit 38.5 VOL% (42.0-52.0)
[2019-03-24 06:28] LABS: Hemoglobin 11.2 GM/DL (14.0-18.0)
[2019-03-24] MEDS: INSULIN REGULAR 100 UNIT/ML SUBCUT SCH ×4 (07:59→23:03)
[2019-03-24] MEDS: MEROPENEM 500 MG in SODIUM CHLORIDE 0.9% 100 ML IV SCH ×3 (08:37→22:21)
[2019-03-24] MEDS: PANTOPRAZOLE 40 MG TABLET PO SCH (08:37)
[2019-03-24] MEDS ORDERED: methylPREDNISolone SOD SUC 125 MG/2 ML VIAL IV SCH (10:00)
[2019-03-24] MEDS: methylPREDNISolone SOD SUC 40 MG/1 ML VIAL IV SCH (14:35)
[2019-03-24] MEDS: ACETAMINOPHEN 325 MG TABLET PO PRN (22:22)
[2019-03-25] MEDS: AZITHROMYCIN INJ 500 MG in SODIUM CHLORIDE 0.9% 250 ML IV SCH ×2 (00:04→22:12)
[2019-03-25] MEDS: methylPREDNISolone SOD SUC 40 MG/1 ML VIAL IV SCH ×2 (00:06→12:17)
[2019-03-25] MEDS: ALBUTEROL/IPRATROPIUM 3 ML NEB RESP TX SCH ×4 (00:21→19:03)
[2019-03-25] MEDS: ACETAMINOPHEN 325 MG TABLET PO PRN ×3 (02:39→22:17)
[2019-03-25] MEDS: MEROPENEM 500 MG in SODIUM CHLORIDE 0.9% 100 ML IV SCH ×4 (04:02→22:10)
[2019-03-25 04:04] LABS: ABG Base Excess 6.6 MMOL/L (-2.5-2.5); ABG HCO3 31.6 MMOL/L (20-26); ABG Oxygen Saturation 94.3 % (95-100); ABG PCO2 47.4 MM HG (35-48); ABG PH 7.442 (7.35-7.45); ABG PO2 70.9 MM HG (80-95); ABG TCO2 33.1 MMOL/L (23-27); Allen Test Positive
[2019-03-25 05:24] LABS: Basophils % 0.1 % (0.0-0.8); Hemoglobin 9.6 GM/DL (14.0-18.0); Immature Granulocytes % 0.6 %; Immature Granulocytes Absolute 0.08 #; Lymphocytes # 0.6 10*3/uL (1.4-4.0); Lymphocytes % 4.2 % (21.2-54.2); Mean Platelet Volume 9.6 FL (9.6-12.0); Monocytes % 2.6 % (1.7-12.7); Neutrophils % 92.5 % (38.7-73.9); Platelet Count 298 T/CUMM (130-400); Red Blood Count 3.68 MC/CUMM (3.8-5.5); Red Cell Distribution Width 15.4 % (9.3-17.3); White Blood Count 14.2 T/CUMM (4-12)
[2019-03-25 05:50] LABS: Calcium 8.9 MG/DL (8.5-10.1); Osmolality,Calculated 279.7 MOS/KG (273-304)
[2019-03-25 05:54] LABS: Hypochromasia 1+; Lymphocytes 4 % (20-55); Platelet Estimate Adequate; Segmented Neutrophils 95 % (50-85); Total Cells Counted 100
[2019-03-25] MEDS: INSULIN REGULAR 100 UNIT/ML SUBCUT SCH ×4 (08:50→20:25)
[2019-03-25] MEDS: PANTOPRAZOLE 40 MG TABLET PO SCH (08:51)
[2019-03-25] MEDS: ENOXAPARIN 40 MG/0.4 ML SYRINGE SUBCUT SCH (18:09)
[2019-03-26] MEDS: methylPREDNISolone SOD SUC 40 MG/1 ML VIAL IV SCH ×3 (00:10→23:51)
[2019-03-26] MEDS: ALBUTEROL/IPRATROPIUM 3 ML NEB RESP TX SCH ×4 (00:30→19:58)
[2019-03-26] MEDS: MEROPENEM 500 MG in SODIUM CHLORIDE 0.9% 100 ML IV SCH ×4 (03:07→21:18)
[2019-03-26] MEDS: PANTOPRAZOLE 40 MG TABLET PO SCH (10:27)
[2019-03-26] MEDS: INSULIN REGULAR 100 UNIT/ML SUBCUT SCH ×4 (10:28→22:03)
[2019-03-26] MEDS: ENOXAPARIN 40 MG/0.4 ML SYRINGE SUBCUT SCH (16:31)
[2019-03-26] MEDS: AZITHROMYCIN INJ 500 MG in SODIUM CHLORIDE 0.9% 250 ML IV SCH (21:55)
[2019-03-27] MEDS: ALBUTEROL/IPRATROPIUM 3 ML NEB RESP TX SCH ×4 (00:57→19:35)
[2019-03-27] MEDS: MEROPENEM 500 MG in SODIUM CHLORIDE 0.9% 100 ML IV SCH ×4 (02:14→20:52)
[2019-03-27] MEDS ORDERED: ETOMIDATE 20 MG/10 ML VIAL IV ONE ×2 (04:37→04:42)
[2019-03-27] MEDS ORDERED: VECURONIUM 10 MG VIAL IV ONE ×2 (04:37→04:42)
[2019-03-27] MEDS: hydrALAZINE 20 MG/1 ML VIAL IV PRN (05:30)
[2019-03-27 05:53] LABS: ABG Base Excess 4.6 MMOL/L (-2.5-2.5); ABG HCO3 28.6 MMOL/L (20-26); ABG PCO2 38.5 MM HG (35-48); ABG PH 7.476 (7.35-7.45); ABG TCO2 25.5 MMOL/L (23-27)
[2019-03-27 06:06] LABS: Apearance,Urine CLEAR (Clear); Bilirubin,Urine Negative (Negative); Blood, Urine Negative (Negative); Glucose,Urine (UA) 50 mg/dL (Negative); Hyaline Casts,Urine 1 /LPF (0-3); Ketones,Urine Negative (Negative); Mucus,Urine Occasional /LPF (Occasional); Nitrite,Urine Negative (Negative); Protein,Urine 100 MG/DL; RBC,Urine 2 /HPF (0-4); Urine Color Straw (Yellow); Urine Urobilinogen < 2.0 EU/DL (0.2-1.0); WBC,Urine 3 /HPF (0-6)
[2019-03-27] MEDS ORDERED: LIDOCAINE 2% 20 ML VIAL ONE ×2 (08:09→19:20)
[2019-03-27] MEDS ORDERED: LIDOCAINE 2% 20 ML VIAL MISC INJ ONE (09:06)
[2019-03-27] MEDS ORDERED: FUROSEMIDE 40 MG/4 ML VIAL IV ONE (09:32)
[2019-03-27] MEDS: PANTOPRAZOLE 40 MG VIAL IV SCH (09:36)
[2019-03-27] MEDS: INSULIN REGULAR 100 UNIT/ML SUBCUT SCH ×4 (09:46→21:19)
[2019-03-27] MEDS: methylPREDNISolone SOD SUC 40 MG/1 ML VIAL IV SCH (11:39)
[2019-03-27] MEDS: ENOXAPARIN 40 MG/0.4 ML SYRINGE SUBCUT SCH (17:15)
[2019-03-27] MEDS: AZITHROMYCIN INJ 500 MG in SODIUM CHLORIDE 0.9% 250 ML IV SCH (20:54)
[2019-03-28] MEDS: methylPREDNISolone SOD SUC 40 MG/1 ML VIAL IV SCH ×2 (00:07→12:43)
[2019-03-28] MEDS: ALBUTEROL/IPRATROPIUM 3 ML NEB RESP TX SCH ×4 (00:45→19:25)
[2019-03-28] MEDS: MEROPENEM 500 MG in SODIUM CHLORIDE 0.9% 100 ML IV SCH ×4 (02:30→19:05)
[2019-03-28 04:09] LABS: ABG Base Excess 6.1 MMOL/L (-2.5-2.5); ABG HCO3 28.6 MMOL/L (20-26); ABG Oxygen Saturation 99.1 % (95-100); ABG PCO2 33.6 MM HG (35-48); ABG PH 7.548 (7.35-7.45); ABG PO2 157.1 MM HG (80-95); ABG TCO2 29.6 MMOL/L (23-27); Allen Test Positive; Pt O2 Delivery Device Ventilator
[2019-03-28 04:23] LABS: Calcium 8.4 MG/DL (8.5-10.1); Osmolality,Calculated 279.7 MOS/KG (273-304)
[2019-03-28 04:33] LABS: Hematocrit 32.3 VOL% (42.0-52.0); Hemoglobin 10.1 GM/DL (14.0-18.0); Immature Granulocytes % 0.8 %; Immature Granulocytes Absolute 0.07 #; Lymphocytes # 0.7 10*3/uL (1.4-4.0); Lymphocytes % 7.9 % (21.2-54.2); Mean Corpuscular HGB Conc 31.3 GM/DL (32-36); Monocytes % 7.6 % (1.7-12.7); Neutrophils % 83.7 % (38.7-73.9); Platelet Count 269 T/CUMM (130-400); Red Cell Distribution Width 15.5 % (9.3-17.3); White Blood Count 9.1 T/CUMM (4-12)
[2019-03-28] MEDS ORDERED: HYDROmorphone 2 MG/1 ML VIAL IV PRN (07:48)
[2019-03-28] MEDS: INSULIN REGULAR 100 UNIT/ML SUBCUT SCH ×4 (07:51→21:19)
[2019-03-28] MEDS: PANTOPRAZOLE 40 MG VIAL IV SCH (08:46)
[2019-03-28] MEDS: HYDROmorphone 2 MG/1 ML VIAL IV PRN ×5 (10:54→19:21)
[2019-03-28] MEDS: ENOXAPARIN 40 MG/0.4 ML SYRINGE SUBCUT SCH (16:31)
[2019-03-28] MEDS: AZITHROMYCIN INJ 500 MG in SODIUM CHLORIDE 0.9% 250 ML IV SCH (19:12)
[2019-03-29] MEDS: ALBUTEROL/IPRATROPIUM 3 ML NEB RESP TX SCH ×4 (00:05→18:51)
[2019-03-29] MEDS: methylPREDNISolone SOD SUC 40 MG/1 ML VIAL IV SCH ×3 (00:28→23:57)
[2019-03-29] MEDS: MEROPENEM 500 MG in SODIUM CHLORIDE 0.9% 100 ML IV SCH ×4 (02:43→21:21)
[2019-03-29] MEDS: HYDROmorphone 2 MG/1 ML VIAL IV PRN ×7 (02:44→19:15)
[2019-03-29 03:36] LABS: ABG Base Excess 5.7 MMOL/L (-2.5-2.5); ABG HCO3 29.6 MMOL/L (20-26); ABG TCO2 25.2 MMOL/L (23-27); Allen Test Positive; Pt O2 Delivery Device Ventilator
[2019-03-29 07:20] LABS: Basophils % 0.1 % (0.0-0.8); Eosinophils % 0.1 % (0.00-10.9); Hemoglobin 9.5 GM/DL (14.0-18.0); Immature Granulocytes % 0.7 %; Immature Granulocytes Absolute 0.06 #; Lymphocytes # 1.4 10*3/uL (1.4-4.0); Lymphocytes % 16.1 % (21.2-54.2); Mean Corpuscular HGB Conc 30.6 GM/DL (32-36); Mean Corpuscular Volume 84.7 FL (87-102); Monocytes % 8.5 % (1.7-12.7); Neutrophils % 74.5 % (38.7-73.9); Platelet Count 245 T/CUMM (130-400); Red Blood Count 3.66 MC/CUMM (3.8-5.5); Red Cell Distribution Width 15.5 % (9.3-17.3); White Blood Count 8.8 T/CUMM (4-12)
[2019-03-29] MEDS ORDERED: FUROSEMIDE 40 MG/4 ML VIAL IV ONE (07:26)
[2019-03-29] MEDS: INSULIN REGULAR 100 UNIT/ML SUBCUT SCH ×4 (07:43→21:22)
[2019-03-29 07:46] LABS: Calcium 8.4 MG/DL (8.5-10.1); Osmolality,Calculated 285.1 MOS/KG (273-304)
[2019-03-29] MEDS: PANTOPRAZOLE 40 MG VIAL IV SCH (09:22)
[2019-03-29] MEDS: POTASSIUM CHLORIDE 20 MEQ/15 ML UDCUP PER TUBE SCH ×3 (09:28→16:59)
[2019-03-29] MEDS: ENOXAPARIN 40 MG/0.4 ML SYRINGE SUBCUT SCH (17:00)
[2019-03-30] MEDS: ALBUTEROL/IPRATROPIUM 3 ML NEB RESP TX SCH ×4 (00:58→19:53)
[2019-03-30] MEDS: MEROPENEM 500 MG in SODIUM CHLORIDE 0.9% 100 ML IV SCH ×4 (03:00→20:33)
[2019-03-30] MEDS: HYDROmorphone 2 MG/1 ML VIAL IV PRN ×8 (03:02→23:39)
[2019-03-30 03:23] LABS: ABG Base Excess 3.6 MMOL/L (-2.5-2.5); ABG HCO3 27.6 MMOL/L (20-26); ABG Oxygen Saturation 98.7 % (95-100); ABG PCO2 34.6 MM HG (35-48); ABG PH 7.495 (7.35-7.45); Allen Test Positive; Pt O2 Delivery Device Ventilator
[2019-03-30 04:36] LABS: Basophils % 0.1 % (0.0-0.8); Hematocrit 31.8 VOL% (42.0-52.0); Hemoglobin 9.8 GM/DL (14.0-18.0); Immature Granulocytes % 0.9 %; Immature Granulocytes Absolute 0.07 #; Lymphocytes # 0.6 10*3/uL (1.4-4.0); Lymphocytes % 7.5 % (21.2-54.2); Mean Corpuscular HGB Conc 30.8 GM/DL (32-36); Mean Corpuscular Volume 84.4 FL (87-102); Mean Platelet Volume 9.9 FL (9.6-12.0); Monocytes % 3.9 % (1.7-12.7); Neutrophils % 87.6 % (38.7-73.9); Platelet Count 247 T/CUMM (130-400); Red Blood Count 3.77 MC/CUMM (3.8-5.5); Red Cell Distribution Width 15.3 % (9.3-17.3); White Blood Count 7.9 T/CUMM (4-12)
[2019-03-30 04:59] LABS: Calcium 8.2 MG/DL (8.5-10.1); Osmolality,Calculated 281.5 MOS/KG (273-304)
[2019-03-30] MEDS: POTASSIUM CHLORIDE 20 MEQ/15 ML UDCUP PER TUBE PRN ×3 (06:43→15:57)
[2019-03-30] MEDS: INSULIN REGULAR 100 UNIT/ML SUBCUT SCH ×3 (07:36→17:06)
[2019-03-30] MEDS: PANTOPRAZOLE 40 MG VIAL IV SCH (09:46)
[2019-03-30] MEDS: methylPREDNISolone SOD SUC 40 MG/1 ML VIAL IV SCH ×2 (11:16→23:37)
[2019-03-30] MEDS ORDERED: DEXTROSE 10% 250 ML BAG IV PRN (13:12)
[2019-03-30] MEDS ORDERED: GLUCAGON 1 MG VIAL IM PRN (13:12)
[2019-03-30] MEDS: ENOXAPARIN 40 MG/0.4 ML SYRINGE SUBCUT SCH (17:07)
[2019-03-31] MEDS: INSULIN REGULAR 100 UNIT/ML SUBCUT SCH ×4 (00:21→18:17)
[2019-03-31] MEDS: ALBUTEROL/IPRATROPIUM 3 ML NEB RESP TX SCH ×3 (01:39→12:30)
[2019-03-31] MEDS: MEROPENEM 500 MG in SODIUM CHLORIDE 0.9% 100 ML IV SCH ×2 (02:22→08:55)
[2019-03-31 03:46] LABS: ABG Base Excess 0.5 MMOL/L (-2.5-2.5); ABG HCO3 24.9 MMOL/L (20-26); ABG Oxygen Saturation 98.4 % (95-100); ABG PCO2 32.6 MM HG (35-48); ABG PH 7.469 (7.35-7.45); ABG TCO2 21.3 MMOL/L (23-27); Allen Test Positive; Pt O2 Delivery Device Ventilator
[2019-03-31] MEDS ORDERED: SODIUM CHLORIDE 0.9% 100 ML IV ONE (04:34)
[2019-03-31 05:53] VITALS: BP 124/69
[2019-03-31 06:10] LABS: Calcium 8.5 MG/DL (8.5-10.1); Osmolality,Calculated 277.8 MOS/KG (273-304)
[2019-03-31 06:26] LABS: Basophils % 0.1 % (0.0-0.8); Hematocrit 32.1 VOL% (42.0-52.0); Hemoglobin 9.8 GM/DL (14.0-18.0); Immature Granulocytes % 0.7 %; Immature Granulocytes Absolute 0.07 #; Lymphocytes # 0.8 10*3/uL (1.4-4.0); Lymphocytes % 7.8 % (21.2-54.2); Mean Corpuscular HGB Conc 30.5 GM/DL (32-36); Mean Corpuscular Volume 84.9 FL (87-102); Mean Platelet Volume 9.9 FL (9.6-12.0); Monocytes % 4.9 % (1.7-12.7); Neutrophils % 86.5 % (38.7-73.9); Platelet Count 239 T/CUMM (130-400); Red Blood Count 3.78 MC/CUMM (3.8-5.5); Red Cell Distribution Width 15.5 % (9.3-17.3); White Blood Count 10.6 T/CUMM (4-12)
[2019-03-31] MEDS: PANTOPRAZOLE 40 MG VIAL IV SCH (09:37)
[2019-03-31] MEDS: methylPREDNISolone SOD SUC 40 MG/1 ML VIAL IV SCH (10:30)
[2019-03-31] MEDS: HYDROmorphone 2 MG/1 ML VIAL IV PRN (11:20)
[2019-03-31] MEDS: hydrALAZINE 20 MG/1 ML VIAL IV PRN (11:35)
[2019-03-31] MEDS ORDERED: LINACLOTIDE 145 MCG CAPSULE PO PRN (11:48)
[2019-03-31] MEDS ORDERED: NITROGLYCERIN SL 0.4 MG TABLET SL PRN (11:48)
[2019-03-31] MEDS ORDERED: MIDAZOLAM 2 MG/2 ML VIAL IV ONE (11:51)
[2019-03-31] MEDS ORDERED: POTASSIUM CHLORIDE 10 MEQ TABLET PO SCH (12:00)
[2019-03-31] MEDS ORDERED: VENLAFAXINE 75 MG TABLET PO SCH (12:00)
[2019-03-31] MEDS ORDERED: MULTIVITAMIN (CENTRUM) TABLET PO SCH (12:00)
[2019-03-31] MEDS ORDERED: risperiDONE 1 MG TABLET PO SCH (12:00)
[2019-03-31] MEDS ORDERED: POLYETHYLENE GLYCOL POWDER 17 GM PACK PO SCH (12:00)
[2019-03-31] MEDS ORDERED: FUROSEMIDE 40 MG TABLET PO SCH (12:00)
[2019-03-31] MEDS ORDERED: carvediloL 12.5 MG TABLET PO SCH (12:00)
[2019-03-31] MEDS ORDERED: RANITIDINE 150 MG TABLET PO SCH (12:30)
[2019-03-31] MEDS ORDERED: INFLUENZA VIRUS VACCINE 0.5 ML SYRINGE IM ONE (12:40)
[2019-03-31] MEDS: ACETAMINOPHEN 325 MG TABLET PO PRN (15:05)
[2019-03-31] MEDS: ENOXAPARIN 40 MG/0.4 ML SYRINGE SUBCUT SCH (17:23)
[2019-03-31] MEDS ORDERED: DOCUSATE SODIUM 100 MG/10 ML UDCUP PO SCH (21:00)
[2019-03-31] MEDS ORDERED: TAMSULOSIN 0.4 MG CAPSULE PO SCH (21:00)
== END 2019-03-31 18:37 | DRG 207 ==
LOC: EDBD → EDUNIT# → N.ED 16:06 → N.EDINP 18:07 → SUATTDRO 18:07 → N.ICU 19:23 → N.5E 03-24 18:30 → N.ICU 03-27 05:39
PROVIDERS: ADMIT Internal Medicine; ATTEND Internal Medicine